=== PATIENT | female | born 1960 | race Caucasian/White ===

== ENCOUNTER 2023-12-19 16:27 | Emergency (ER) | payer MEDICARE, SELFPAY ==
[2023-12-19] VITALS (13 sets, daily range): BP systolic 106–107; BP diastolic 61–72; PULSE 69–93; RESP 14–18; TEMP 36.4; O2SAT 89–98; BMI 37.4
--- NOTE | 2023-12-19 16:44 | ED_ITS ---
HPI - General Adult General Chief complaint: Chest Pain Stated complaint: Dizzy, confused, trouble breathing Time Seen by Provider: 12/19/23 16:39 History of Present Illness HPI narrative: Pt c/o gasping for air, chest pain, and dizziness that started about an hour ago. Pt states she felt like she was going to pass out while driving to ER. Pt states she couldn't call ambulance because I was driving. Pt states she has pain in left leg for about a week and was at an appointment in [place] earlier today to get started with pain management doctor. Hx two stents placed and a pacemaker . Last stent placed two weeks ago. 63-year-old woman presenting to the emergency department having driven herself here. She began to feel short of breath and some combination of dizziness and lightheadedness beginning about an hour prior to arrival. She was feeling like she was about to pass out. She says she just started shaking like a leaf. Not so much chest pain. She has however had pain in her left leg the entirety of it for about a week and was anticipating appointment at a pain clinic earlier today and this was the reason for being out driving. Does have a history of a pacemaker and had some stomach pains prompting admission to the hospital she says 2 weeks ago and ultimately had a cardiac stent placed at that time. I asked her whether not she has felt as she feels now and she says no but with further clarification sounds as though she has actually felt like this just not quite is intensely 2 weeks ago. No fever. No cough. Related Data Home Medications Medication Instructions Recorded Confirmed alcohol swabs pad topical DAILY 12/19/23 atorvastatin 40 mg tablet 40 mg PO DAILY 12/19/23 12/19/23 blood glucose control high and low 12/19/23 12/19/23 solution (Accu-Chek Guide L1-L2 Control Solution) blood sugar diagnostic (Accu-Chek 12/19/23 12/19/23 Guide test strips) blood-glucose meter (Accu-Chek 12/19/23 12/19/23 Guide Me Glucose Meter) blood-glucose meter,continuous 12/19/23 12/19/23 (Namely G7 Consulting Intern) blood-glucose sensor (Namely G6 12/19/23 12/19/23 Sensor device) blood-glucose transmitter (Meographcom 12/19/23 12/19/23 G6 Transmitter device) dulaglutide 0.75 mg/0.5 mL 0.75 mg subcut 12/19/23 subcutaneous pen injector (Trulicity) dulaglutide 1.5 mg/0.5 mL 1.5 mg subcut 12/19/23 subcutaneous pen injector (Trulicity) dulaglutide 3 mg/0.5 mL 3 mg subcut 12/19/23 subcutaneous pen injector (Trulicity) dulaglutide 4.5 mg/0.5 mL 4.5 mg subcut 12/19/23 subcutaneous pen injector (Trulicity) insulin glargine U-300 conc 300 36 unit subcut QPM 12/19/23 12/19/23 unit/mL (1.5 mL) subcutaneous pen (Toujeo SoloStar U-300 Insulin) insulin lispro 100 unit/mL 4 - 20 unit subcut 3XD 12/19/23 12/19/23 subcutaneous pen (Humalog KwikPen (U-100) Insulin) lancets (Accu-Chek Fastclix Lancet 12/19/23 12/19/23 Dmitriy) meclizine 25 mg tablet PO 12/19/23 minocycline 100 mg capsule 100 mg PO BID 12/19/23 12/19/23 naproxen 500 mg tablet 500 mg PO BID 12/19/23 12/19/23 nitroglycerin 0.4 mg sublingual mg sublingual 12/19/23 tablet oxycodone 5 mg tablet PO 12/19/23 pantoprazole 40 mg tablet,delayed 40 mg PO DAILY 12/19/23 12/19/23 release pen needle, diabetic 32 gauge x 12/19/23 12/19/2332 (BD Federica 2nd Gen Pen Needle) prednisone 10 mg tablet 40 mg PO DAILY 12/19/23 12/19/23 Previous Rx's Medication Instructions Recorded diazepam 5 mg tablet (Valium) 2.5 - 5 mg (0.5 - 1 x 5 mg) PO BID 12/19/23 PRN intense dizziness #5 tabs meclizine 25 mg tablet 25 mg PO TID #15 tabs 12/19/23 Allergies Allergy/AdvReac Type Severity Reaction Status Date / Time Unable to Assess Allergy Verified 12/19/23 16:37 Review of Systems Status of ROS: Reports: 6 or more systems reviewed and unremarkable except as noted in History and below [facility] Social History Smoking Status: Never smoker How often do you have a drink containing alcohol: never AUDIT-C Alcohol total score: 0 Non-prescribed substance use: denies use Exam Narrative: Exam Narrative: Cranial nerves 2-12 appear to be intact. Is clearly anxious. Mildly labored in her breathing. Oxygenating normally. She is tremulous generally. Is able to move all extremities without difficulty though any palpation of the entirety of the left leg seems to cause pain. Does feel more tense in the lower leg and little more full relative to the right. There is some bruising consistent more with subcutaneous varicosities left greater than right. Abdomen is overweight and soft and she is sore in the right lower abdomen. No peritoneal signs here. Cranial nerves 2-12 to be intact. There may be some beating nystagmus to the left. She does reports some combination of dizziness and lightheadedness when she goes to sitting position or looking up and down but rotating the head to the right only feels a sense of lightheadedness and then dizziness and maybe some lightheadedness when rotating head to the left. No evidence of head trauma. Lungs appear to be clear heart in regular rate and rhythm. Somewhat distant. Returned to do head impulse testing. She is positive to the left consistent with reports of dizziness more persistent to that side. Const: Vital Signs, click to edit/add: Vital Signs - 24 hr 12/19/23 16:29 12/19/23 17:00 12/19/23 17:00 Temperature 97.5 F L Pulse Rate 80 Pulse Rate [Pulse Oximeter] 80 Respiratory Rate 18 16 Blood Pressure 107/61 Blood Pressure [Le ft Upper Arm] 106/72 Pulse Oximetry 97 95 96 Oxygen Delivery Me thod Room Air 12/19/23 17:45 12/19/23 19:23 12/19/23 19:30 Temperature Pulse Rate 74 81 82 Pulse Rate [Pulse Oximeter] Respiratory Rate 14 Blood Pressure Blood Pressure [Le ft Upper Arm] Pulse Oximetry 90 98 97 Oxygen Delivery Me thod 12/19/23 19:45 12/19/23 20:00 12/19/23 20:15 Temperature Pulse Rate 75 76 76 Pulse Rate [Pulse Oximeter] Respiratory Rate Blood Pressure Blood Pressure [Le ft Upper Arm] Pulse Oximetry 95 89 92 Oxygen Delivery Me thod 12/19/23 20:30 12/19/23 20:45 12/19/23 21:00 Temperature Pulse Rate 78 79 69 Pulse Rate [Pulse Oximeter] Respiratory Rate Blood Pressure Blood Pressure [Le ft Upper Arm] Pulse Oximetry 91 91 92 Oxygen Delivery Me thod 12/19/23 21:15 12/19/23 21:30 Temperature Pulse Rate 93 80 Pulse Rate [Pulse Oximeter] Respiratory Rate Blood Pressure Blood Pressure [Le ft Upper Arm] Pulse Oximetry 98 92 Oxygen Delivery Me thod Documenting provider has reviewed patient's vital signs: yes Course Vital Signs Vital signs: Initial Vital Signs Temperature 97.5 F L 12/19/23 16:29 Temperature Source Temporal Artery Scan 12/19/23 16:29 Pulse Rate 80 12/19/23 16:29 Respiratory Rate 18 12/19/23 16:29 Blood Pressure 106/72 12/19/23 16:29 Blood Pressure Mean 83 12/19/23 16:29 Blood Pressure Position Sitting 12/19/23 16:29 Pulse Oximetry 97 12/19/23 16:29 Oxygen Delivery Method Room Air 12/19/23 16:29 Vital Signs Temperature 97.5 F L 12/19/23 16:29 Pulse Rate 80 12/19/23 16:29 Respiratory Rate 18 12/19/23 16:29 Blood Pressure 106/72 12/19/23 16:29 Pulse Oximetry 97 12/19/23 16:29 Oxygen Delivery Method Room Air 12/19/23 16:29 Temperature 97.5 F L 12/19/23 16:29 Pulse Rate 80 12/19/23 21:30 Respiratory Rate 14 12/19/23 17:45 Blood Pressure 107/61 12/19/23 17:00 Pulse Oximetry 92 12/19/23 21:30 Oxygen Delivery Method Room Air 12/19/23 16:29 Medications Administered Medications: Discontinued Medications Generic Name Dose Route Start Last Admin Trade Name Freq PRN Reason Stop Dose Admin Diazepam 2.5 mg 12/19/23 17:04 12/19/23 17:29 Diazepam 5 Mg/Ml Inj IV 12/19/23 17:05 2.5 mg ONCE ONE Administration Sodium Chloride 500 mls @ 500 mls/hr 12/19/23 17:55 02/26/24 19:48 0.9 % Sodium Chloride 500 Ml IV 12/19/23 18:54 Infused .Q1H ONE Infusion Ondansetron HCl 4 mg 12/19/23 19:34 12/19/23 19:48 Ondansetron 2 Mg/Ml Inj IVP 12/19/23 19:35 4 mg ONCE ONE Administration Medical Decision Making MDM Narrative Medical decision making narrative: Certainly anxiety is exacerbating her symptoms here today. This may be vertigo and secondary panic attack in the setting of some underlying cardiovascular ischemic event. Appears to be in a regular rhythm at this time. Could be CVA. Certainly could be pulmonary embolus maintaining oxygenation with a DVT in the left leg. Will be monitoring on vehicle monitor technician. Checking labs. Will start off initially just with a noncontrast head CT and ultrasound imaging of the left leg. Some low-dose Valium and reassessment. Reassessment see under exam. She does report still feeling dizzy. Blood pressures are not elevated again on arrival 106/72 perhaps inconsistent with ischemic cerebrovascular event. Had received half dose Valium. The time of reassessment probably had been about 10 minutes since had received this Valium. Would like to add some fluids. Will use this cautiously. Initiated 500 mL of normal saline. I did discuss this case with Neurology on-call. They also suspect more of a peripheral etiology. Chest x-ray reviewed by me looks to be absent of infiltrate or pneumothorax. Postoperative changes noted. Noncontrast head CT reviewed by me looks to be absent of any acute abnormality. Study:?CT-Head WITHOUT-12/19/2023 5:40:41 PM Ordering Physician:LUTHER Final Report: INDICATION: LIGHT HEADED AND DIZZY. CT HEAD WITHOUT CONTRAST TECHNIQUE: Multiple axial CT images were performed through the head without intravenous contrast administration. COMPARISON: No previous studies are currently available for comparison. FINDINGS: No acute intracranial hemorrhage is identified. No extra-axial collections are evident and there is no mass effect or midline shift. There is mild diffuse age-related brain atrophy. Ventricular size and configuration are within normal limits for the patient`s age. Watson-white differentiation is within normal limits. There is patchy hypodensity in the periventricular white matter, a nonspecific finding which most likely reflects chronic small vessel ischemic change. Osseous structures are within normal limits and no fractures are seen. Included portions of the paranasal sinuses and mastoid air cells are normally aerated. IMPRESSION: 1. No acute intracranial abnormality identified. 2. Mild age-related brain atrophy and white matter hypodensity consistent with chronic small vessel ischemic change. Discussion with operations trainer reports small White's cyst at the left popliteal fossa. No DVT. Labs are reassuring. D-dimer is however elevated at 1.1. I did discuss this finding with Ms. Cornell. She has had recent instrumentation. Access for stenting apparently was obtained through the right wrist. She does not have pleuritic pain she is not hypoxic she is not short of breath. We agreed to defer further imaging at this time. Did drift 90% on room air I think while she was sleeping. While I am talking with her oximetry 98%. Much more calm and no longer trembling. Dizziness is essentially absent. Sleepy but clearly improved on repeat reassessments. No events on vehicle monitor technician. Persistently paced rhythm. Vitals have been stable. See patient discharge plan Lab Data Lab results reviewed: Yes I reviewed the patient's lab results Labs: Lab Results 12/19/23 12/19/23 Range/Units 17:25 20:55 WBC 10.19 (4.50-11.00) K/uL RBC 3.88 L (4.00-5.20) m/uL Hgb 11.0 L (12.0-16.0) gm/dL Hct 34.1 (33.0-51.0) % MCV 88 (80-100) fL MCH 28 (26-34) pg MCHC 32 (32-36) gm/dL RDW Coeff of Juan Manuel 15.8 H (11.5-15.5) % Plt Count 255 (140-440) K/uL Neut % (Auto) 76.3 H (42.0-72.0) % Lymph % (Auto) 14.0 L (20-44) % Thurston % (Auto) 6.8 (0.0-11.0) % Eos % (Auto) 2.6 (0.0-7.0) % Baso % (Auto) 0.0 (0.0-3.0) % Neut # (Auto) 7.80 H (1.7-7.0) K/uL Lymph # (Auto) 1.40 (0.90-2.90) K/uL Thurston # (Auto) 0.70 (0.00-0.90) K/UL Eos # (Auto) 0.26 (0.00-0.50) K/uL Baso # (Auto) 0.00 (0.00-0.30) K/uL Abs Immat Gran (auto) 0.03 (0.00-0.30) K/uL Imm/Tot Granulo (auto) 0.3 % D-Dimer Quant (PE/DVT) 1.09 H (0.00-0.50) ug/ml Sodium 139 (135-149) mmol/L Potassium 3.7 (3.6-5.1) mmol/L Chloride 104 (96-114) mmol/L Carbon Dioxide 24 (20-32) mmol/L Anion Gap 11 (7-15) mEq/L BUN 27 (7-30) mg/dL Creatinine 0.8 (0.5-1.5) mg/dL Estimated Creat Clear 50.47 Estimated GFR 82 ml/min Glucose 150 H (60-115) mg/dL Calcium 9.5 (8.4-10.6) mg/dL Magnesium 1.8 (1.5-2.6) mg/dL Troponin I < 0.01 L (0.01-0.04) ng/mL C-Reactive Protein 0.7 (0.5-1.0) mg/dL NT-Pro-B Natriuret Pep 112 pg/mL Urine Color Yellow (Yellow) Urine Appearance Clear (Clear) Urine pH 6.0 (5.0-8.5) Ur Specific [place] 1.020 (1.000-1.030) Urine Protein Negative (Negative) Urine Glucose (UA) Negative (Negative) Urine Ketones Negative (Negative) Urine Blood Negative (Negative) Urine Nitrite Negative (Negative) Urine Bilirubin Negative (Negative) Urine Urobilinogen 0.2 (0.2-1.0) Ur Leukocyte Esterase Trace A (Negative) Urine RBC 0-2 (0-2) Urine WBC 2-5 (0-5) Ur Squamous Epith Cells None (None-Few) Urine Bacteria None (None) POC Troponin I 0.02 (0.01-0.04) ng/ml ECG Data Attestation: I personally reviewed and interpreted this ECG as follows: (Ventricular paced rhythm, atrial sensed. Rate of 77. Do not appreciate acute ischemic changes.) Discharge Plan Discharge Clinical Impression: Peripheral vertigo involving left ear, Anxiety attack Patient Disposition: Home, Self-Care Condition: Improved Additional Instructions: I am sure you felt terrible with this dizziness. Very pleased you are feeling better. If it does not make you to tired, you can take meclizine regularly 3 times daily over the next 4 days to settle down inflammation. For more intense dizzy symptoms I have prescribed small quantity of Valium. The Valium can make you tired. Of course this plus your dizziness can be a risk for falls; be sure your walker is at hand. See handout for exercises that you can do that might help the dizziness. Focus on the exercises for the left ear. Stay well-hydrated. Be seen for noon focal weakness, intractable vomiting, chest pain or shortness of breath. Prescriptions: New meclizine 25 mg tablet 25 mg PO TID Qty: 15 0RF diazepam [Valium] 5 mg tablet 2.5 - 5 mg PO BID PRN (Reason: intense dizziness) Qty: 5 0RF No Action atorvastatin 40 mg tablet 40 mg PO DAILY prednisone 10 mg tablet 40 mg PO DAILY (DME) blood-glucose meter [Accu-Chek Guide Me Glucose Mtr] Misc MISCELLANEOUS DAILY minocycline 100 mg capsule 100 mg PO BID (DME) Accu-Chek Guide test strips Strip MISCELLANEOUS 3XD (DME) lancets [Accu-Chek Fastclix Lancet Drum] Mis MISCELLANEOUS 3XD meclizine 25 mg tablet PO pantoprazole 40 mg tablet,delayed release (DR/EC) 40 mg PO DAILY nitroglycerin 0.4 mg tablet, sublingual sublingual alcohol swabs Pads, Medicated TOPICAL DAILY naproxen 500 mg tablet 500 mg PO BID oxycodone 5 mg tablet PO insulin lispro [Humalog KwikPen Insulin] 100 unit/mL insulin pen 4 - 20 unit subcut 3XD (DME) Accu-Chek Guide L1-L2 Ctrl Vanessa Solution MISCELLANEOUS Patient Comments: USE TO ENSURE ACCURATE BLOOD GLUCOSE TESTING (DME) Dexcom G6 Sensor Device MISCELLANEOUS Q10D (DME) Dexcom G7 Consulting Intern Misc MISCELLANEOUS Patient Comments: FOR CONTINUOUS GLUCOSE SENSING (DME) Dexcom G6 Transmitter Device MISCELLANEOUS [id number] (DME) pen needle, diabetic [BD Federica 2nd Gen Pen Needle] 32 gauge x 5/32 needle MISCELLANEOUS QID Trulicity 0.75 mg/0.5 mL pen injector 0.75 mg subcut Trulicity 1.5 mg/0.5 mL pen injector 1.5 mg subcut insulin glargine U-300 conc [Toujeo SoloStar U-300 Insulin] 300 unit/mL (1.5 mL) insulin pen 36 unit subcut QPM Trulicity 4.5 mg/0.5 mL pen injector 4.5 mg subcut Trulicity 3 mg/0.5 mL pen injector 3 mg subcut Follow Up/Referrals: Amanda Orellana MD [Primary Care Provider] - Stand Alone Forms: [facility] Info Instructions
--- NOTE | 2023-12-19 17:04 | XR_ITS ---
Patient: MARILEE STEPHENS Facility:?[facility] Patient ID:?[id number] Site Patient ID:?[id number]. Site :?1960 Study:?XR-Chest 1 VIEW-12/19/2023 5:42:23 PM Ordering Physician:LUTHER Final Report: INDICATION: Dyspnea. Recent cardiac stent. Comparison: 11/09/2017. Findings/Impression: Sitting AP chest radiograph. ECG wires overlie the chest. No acute pulmonary infiltrates identified. No pleural effusions. Heart size is within normal limits. There has been interval placement of a cardiac pacemaker, with the generator over the right chest. No acute osseous findings are noted. Dictated by Herber Remy MD @ 12/19/2023 6:27:58 PM Dictated by: Herber Remy MD @ 12/19/2023 18:28:28 Signed by:?Herber Remy MD @12/19/2023 6:28:28 PM (Electronic Signature)
--- NOTE | 2023-12-19 17:04 | CT_ITS ---
Patient: MARILEE STEPHENS Facility:?[facility] Patient ID:?[id number] Site Patient ID:?[id number]. Site :?1960 Study:?CT-Head WITHOUT-12/19/2023 5:40:41 PM Ordering Physician:LUTHER Final Report: INDICATION: LIGHT HEADED AND DIZZY. CT HEAD WITHOUT CONTRAST TECHNIQUE: Multiple axial CT images were performed through the head without intravenous contrast administration. COMPARISON: No previous studies are currently available for comparison. FINDINGS: No acute intracranial hemorrhage is identified. No extra-axial collections are evident and there is no mass effect or midline shift. There is mild diffuse age-related brain atrophy. Ventricular size and configuration are within normal limits for the patient`s age. Watson-white differentiation is within normal limits. There is patchy hypodensity in the periventricular white matter, a nonspecific finding which most likely reflects chronic small vessel ischemic change. Osseous structures are within normal limits and no fractures are seen. Included portions of the paranasal sinuses and mastoid air cells are normally aerated. IMPRESSION: 1. No acute intracranial abnormality identified. 2. Mild age-related brain atrophy and white matter hypodensity consistent with chronic small vessel ischemic change. MARI RAMOS MD [employer] Please note that all CT scans at this facility use dose modulation, iterative reconstruction, and/or weight-based dosing when appropriate to reduce radiation dose to as low as reasonably achievable. Dictated by: Herber Ramos MD @ 12/19/2023 18:31:11 Signed by:?Herber Ramos MD @12/19/2023 6:31:11 PM (Electronic Signature)
--- NOTE | 2023-12-19 17:19 | US_ITS ---
Patient: MARILEE STEPHENS Facility:?[facility] Patient ID:?[id number] Site Patient ID:?[id number]. Site :?1960 Study:?US-Extremity Left DVT-12/19/2023 6:34:17 PM Ordering Physician:?ED Final Report: Indication: Left leg pain and swelling Technique: Venous duplex ultrasound of the left lower extremity, deep vein thrombosis protocol, with grayscale, color, and spectral Doppler Comparison: None Findings: There is no deep vein thrombosis in the left common femoral, deep femoral, superficial femoral, popliteal peroneal, posterior tibial, or contralateral right common femoral veins. There is no superficial venous thrombosis in the greater saphenous vein. Small popliteal cyst measuring 1.3 x 3.1 x 1.0 centimeters. Impression: No deep vein thrombosis in the left lower extremity. Dictated by Burke Arthur MD @ 12/19/2023 8:29:16 PM Signed by:?Burke Arthur MD @12/19/2023 8:29:16 PM (Electronic Signature)
[2023-12-19] MEDS: diazePAM 5 MG/ML inj 2.5 MG IV (17:29)
[2023-12-19 17:38] LABS: Eosinophils Absolute Auto 0.26 K/uL (0.00-0.50); Eosinophils Percent Auto 2.6 % (0.0-7.0); Hematocrit 34.1 % (33.0-51.0); Immature Granulocytes Abs Auto 0.03 K/uL (0.00-0.30); Immature Granulocytes Pct Auto 0.3 %; Mean Corpuscular HGB Conc 32 gm/dL (32-36); Mean Corpuscular Hemoglobin 28 pg (26-34); Mean Corpuscular Volume 88 fL (80-100); Monocytes Percent Auto 6.8 % (0.0-11.0); Neutrophils Percent Auto 76.3 % (42.0-72.0); Platelet Count* 255 K/uL (140-440); RDW Coefficient of Variation % 15.8 % (11.5-15.5); Red Blood Count 3.88 m/uL (4.00-5.20); White Blood Count* 10.19 K/uL (4.50-11.00)
[2023-12-19 17:39] LABS: Slide Review Reflex No
[2023-12-19 17:53] LABS: Chloride* 104 mmol/L (96-114); Potassium* 3.7 mmol/L (3.6-5.1); Sodium* 139 mmol/L (135-149)
[2023-12-19 17:56] LABS: Creatinine* 0.8 mg/dL (0.5-1.5); Est. Creatinine Clearance* 50.47; Estimated Glomerular Filt Rate 82 ml/min
[2023-12-19 17:57] LABS: Anion Gap 11 mEq/L (7-15); Blood Urea Nitrogen* 27 mg/dL (7-30); Calcium* 9.5 mg/dL (8.4-10.6); Carbon Dioxide* 24 mmol/L (20-32); D Dimer Quantitative* 1.09 ug/ml (0.00-0.50); Glucose* 150 mg/dL (60-115); Magnesium* 1.8 mg/dL (1.5-2.6)
[2023-12-19 18:00] LABS: C Reactive Protein* 0.7 mg/dL (0.5-1.0)
[2023-12-19] MEDS: 0.9 % SODIUM CHLORIDE 500 ML 500 ML IV (18:02)
[2023-12-19 18:11] LABS: NT Pro B Type NatriureticPept* 112 pg/mL; Troponin I* < 0.01 ng/mL (0.01-0.04)
[2023-12-19 18:30] LABS: Troponin, Point-of-Care* 0.02 ng/ml (0.01-0.04)
[2023-12-19] MEDS: ONDANSETRON 2 MG/ML inj 4 MG IVP (19:48)
[2023-12-19 21:02] LABS: Appearance Urine Clear (Clear); Bilirubin Urine Negative (Negative); Blood Urine Negative (Negative); Color Urine Yellow (Yellow); Glucose Urine Negative (Negative); Ketones Urine Negative (Negative); Leukocyte Esterase Urine Trace (Negative); Nitrite Urine Negative (Negative); Protein Urine Negative (Negative); Urobilinogen Urine 0.2 (0.2-1.0)
[2023-12-19 21:25] LABS: RBC Urine 0-2 (0-2)
== END 2023-12-19 21:46 | disposition home or self-care (01) ==
PROVIDERS: Emergency Provider Family Medicine; PCP Family Medicine
DX: H81.12 Benign paroxysmal vertigo, left ear (principal); F41.9 Anxiety disorder, unspecified
CPT/HCPCS: 36415; 70450; 71045; 80048; 81001; 83735; 83880; 84484; 85025; 85379; 86140; 87086; 93005; 93971; 94761; 96374; 96375; 99284; 99285; J2405; J3360; J7030

== ENCOUNTER 2024-03-05 20:43 | Observation (INO) | payer MEDICARE, SELFPAY ==
[2024-03-05 21:15] VITALS: BP 124/71; PULSE 65; RESP 18; TEMP 36.5; O2SAT 98; BMI 44.4
[2024-03-06] VITALS (8 sets, daily range): BP systolic 112–133; BP diastolic 53–75; PULSE 67–95; RESP 16–18; TEMP 36.2–37; O2SAT 93–100; BMI 39.8
--- NOTE | 2024-03-06 00:11 | ED.LOWEXIN ---
HPI - Extremity Injury (Lower) General Time Seen by Provider: 00:30 Date Seen: 03/06/24 Chief Complaint: Unspecified Complaint, Adult Stated Complaint: Hasn't taken meds for diabetes Time Seen by Provider: 03/06/24 00:11 Source: patient, RN notes reviewed and old records reviewed Mode of arrival: ambulatory Limitations: no limitations History of Present Illness HPI Narrative: Argentina is a 63-year-old female who self reports history of diabetes, questionable bony infection, lower extremity edema who comes to the emergency room via private vehicle for evaluation of not taking her pills. Patient initially told nursing staff that she was so upset about a recent eviction from her home that she did not take her pills. In discussion with patient she has multiple complaints. History is very challenging as she has not entirely forthcoming with complete answers and jumps from topic to topic. First she tells me that she has been sleeping in her car the past few days and she was evicted from her apartment. Initially does not tell me where her apartment is even though I asked numerous times but I do learned that it is in [place]. She states at 1 point that she return from [place] this morning only to find blue tape on the door of her home. She states that she was evicted. She then drove to the area because for years ago she had been living in [place] and was seeing Amanda Orellana at the [facility] at that time. I asked her what her planned for tonight was in terms of staying with friends or family and she laughed stating that she supposed that she would stay another night in her car. Patient states that she just returned from [place] where she had been hospitalized with chest pain a sore leg and blood clots. She notes that she had been there a week but then went to a rehab facility. However upon further discussion she notes a 2nd trip to [place] in which she had to be hospitalized for similar complaints. She has since been on Eliquis since her 1st visit to [place] and stated that recently she had another ultrasound that showed persistent clots. She then tells me that she drove for many hours from [place] and arrived this morning. She is very concerned because she states that her lower legs are very swollen and this is new and that just waiting in the waiting room she watched her legs swell special on the left. She did take her Eliquis tonight but did not take it this morning. Nursing staff assisted patient in taking her nighttime medications upon her arrival. Patient states she continues to have occasional chest pain. Patient initially very concerned regarding her lower extremity edema. Complains of left leg pain. States that this just happened. I do note that in November she had a visit for similar complaints here in [place] and during the telling of her history similar symptoms upon her presentations to both hospitals in [place]. Patient is showing me her medications and stating that she is worried that she is may be doubled up on some. She has medications from [facility]. She notes that she has taken her oral medications this evening but not her insulin doses. She has a large bottle full of minocycline. She states that she has a bone infection but the bottle is 3/4 full and the date on the bottle as August 2023. She states that she keeps refilling the medication but then puts it in the same bottle. This prescription is from [facility]. Interspersed with history patient goes back to being kicked out of her apartment. She states that she lived there for 4 years and only missed 1 payment. I do ask her about case workers and she says no but she has worked with a lot of them. She tells me that she had been in [place] looking and checking out schools as she wants to return to actually schools. She also tells me that she will be contacting her psychologist tomorrow morning as she is very upset about being kicked out of her apartment. She also notes that she is very sad in February is a very tough month for her as she lost multiple family members and had to put her beloved pet down a few years ago. Patient denies counselor or mental health provider. Related Data Home Medications Medication Instructions Recorded Confirmed alcohol swabs pad topical DAILY 12/19/23 atorvastatin 40 mg tablet 40 mg PO DAILY 12/19/23 12/19/23 blood glucose control high and low 12/19/23 12/19/23 solution (Accu-Chek Guide L1-L2 Control Solution) blood sugar diagnostic (Accu-Chek 12/19/23 12/19/23 Guide test strips) blood-glucose meter (Accu-Chek 12/19/23 12/19/23 Guide Me Glucose Meter) blood-glucose meter,continuous 12/19/23 12/19/23 (Dexcom G7 Chief Business Development Officer) blood-glucose sensor (Dexcom G6 12/19/23 12/19/23 Sensor device) blood-glucose transmitter (Dexcom 12/19/23 12/19/23 G6 Transmitter device) dulaglutide 0.75 mg/0.5 mL 0.75 mg subcut 12/19/23 subcutaneous pen injector (Trulicity) dulaglutide 1.5 mg/0.5 mL 1.5 mg subcut 12/19/23 subcutaneous pen injector (Trulicity) dulaglutide 3 mg/0.5 mL 3 mg subcut 12/19/23 subcutaneous pen injector (Trulicity) dulaglutide 4.5 mg/0.5 mL 4.5 mg subcut 12/19/23 subcutaneous pen injector (Trulicity) insulin glargine U-300 conc 300 36 unit subcut QPM 12/19/23 12/19/23 unit/mL (1.5 mL) subcutaneous pen (Toujeo SoloStar U-300 Insulin) insulin lispro 100 unit/mL 4 - 20 unit subcut 3XD 12/19/23 12/19/23 subcutaneous pen (Humalog KwikPen (U-100) Insulin) lancets (Accu-Chek Fastclix Lancet 12/19/23 12/19/23 Dmitriy) meclizine 25 mg tablet PO 12/19/23 minocycline 100 mg capsule 100 mg PO BID 12/19/23 12/19/23 naproxen 500 mg tablet 500 mg PO BID 12/19/23 12/19/23 nitroglycerin 0.4 mg sublingual mg sublingual 12/19/23 tablet oxycodone 5 mg tablet PO 12/19/23 pantoprazole 40 mg tablet,delayed 40 mg PO DAILY 12/19/23 12/19/23 release pen needle, diabetic 32 gauge x 12/19/23 12/19/23 (BD Federica 2nd Gen Pen Needle) prednisone 10 mg tablet 40 mg PO DAILY 12/19/23 12/19/23 Previous Rx's Medication Instructions Recorded diazepam 5 mg tablet (Valium) 2.5 - 5 mg (0.5 - 1 x 5 mg) PO BID 12/19/23 PRN intense dizziness #5 tabs meclizine 25 mg tablet 25 mg PO TID #15 tabs 12/19/23 Allergies Allergy/AdvReac Type Severity Reaction Status Date / Time Unable to Assess Allergy Verified 12/19/23 16:37 Review of Systems Status of ROS: Reports: 10 or more systems reviewed and unremarkable except as noted in History and below Narrative: Denies tobacco use, alcohol use and drug use. [facility] Social History Smoking Status: Never smoker How often do you have a drink containing alcohol: never AUDIT-C Alcohol total score: 0 Non-prescribed substance use: denies use Exam Narrative: Exam Narrative: Past medical history: Pacemaker-noted on EKG and not volunteered by patient. 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 She is very frustrated. She is very talkative of her preferred topics. I am having a hard time putting all the information she is giving me together as there is some conflicts of the story. Head is atraumatic normocephalic. Moist mucous membranes. Moderate eye contact. EOM is full. Heart with regular rate and rhythm and lungs are clear bilaterally. Abdomen is soft. Lower extremities with 2+ edema. Nonpitting. Moving all extremities and able to ambulate. There is some ecchymosis noted on the anterior lower extremities. No evidence of hematoma. Const: Vital Signs, click to edit/add: Vital Signs - 24 hr 03/05/24 21:15 Temperature 97.7 F Pulse Rate [Pulse Oximeter] 65 Respiratory Rate 18 Blood Pressure [Ri ght Upper Arm] 124/71 Pulse Oximetry 98 Oxygen Delivery Me thod Room Air Documenting provider has reviewed patient's vital signs: yes Course Course ED Course: At this time patient presents with multiple complaints. I think patient is presenting as she states she is homeless. Klaus Elaine had multiple complaints and thus we will check CBC, comprehensive, troponin, EKG ETOH as well as drug tox. She is very concerned about her lower extremity edema which I think is actually because her of prolonged driving and this is a dependent edema. She does not appear to have any respiratory distress and her O2 sats are reassuring. No evidence of tachycardia or illness at this time. No evidence of a radiculopathy. However, her mental state is somewhat worrisome for me. I wonder if she is sleep deprived and thus perhaps slightly manic or if this is her baseline. Will attempt to get records from [place]. At this time she is agreeable to labs and overnight admission. I do think we need director social consult as well as pharmacy consult to assist us in the care of this patient. I am thinking that she needs more support. I suspect that there is a protective services case worker or past history of County involvement with this patient. Vital Signs Vital signs: Initial Vital Signs Temperature 97.7 F 03/05/24 21:15 Temperature Source Temporal Artery Scan 03/05/24 21:15 Pulse Rate 65 03/05/24 21:15 Respiratory Rate 18 03/05/24 21:15 Blood Pressure 124/71 03/05/24 21:15 Blood Pressure Mean 88 03/05/24 21:15 Blood Pressure Position Sitting 03/05/24 21:15 Pulse Oximetry 98 03/05/24 21:15 Oxygen Delivery Method Room Air 03/05/24 21:15 Vital Signs Temperature 97.7 F 03/05/24 21:15 Pulse Rate 65 03/05/24 21:15 Respiratory Rate 18 03/05/24 21:15 Blood Pressure 124/71 03/05/24 21:15 Pulse Oximetry 98 03/05/24 21:15 Oxygen Delivery Method Room Air 03/05/24 21:15 Temperature 97.7 F 03/05/24 21:15 Pulse Rate 65 03/05/24 21:15 Respiratory Rate 18 03/05/24 21:15 Blood Pressure 124/71 03/05/24 21:15 Pulse Oximetry 98 03/05/24 21:15 Oxygen Delivery Method Room Air 03/05/24 21:15 MDM - Extremity Injury (Lower) MDM Narrative Medical decision making narrative: 1. Lower extremity edema with history of DVT-likely dependent from the long car ride. Patient states that she has been taking her Eliquis. She did receive a dose tonight but stated that she had not received 1 the morning of 03/05. Ultrasound scheduled for tomorrow morning to assess clot burden. Measurement of both legs is within 1/8 of an inch. No evidence of pitting edema. ProBNP is reassuring. 2. Left leg pain -able to ambulate. No evidence of radiculopathy. 3. Chest pain-patient has paced rhythm. Troponin is negative. 4. Diabetes-patient does eat and take her diabetic medications this evening. 5. Lack of housing-patient notes that she was evicted from her apartment this morning when she return from [place]. She states that she had only missed 1 payment. Notes that she will be calling her psychologist tomorrow. Rather evasiveness in regards to having a protective services case worker. Would ask for director social to assist us with this patient. 6. Disposition-admission to [facility] for for pharmacological and director social consult. Patient has multiple medications from various hospitals. Also requesting records at this time. I do suspect there is an element of malingering after discussion with patient. I do think there is likely a history of mental health issues as well. Patient admitted after [facility] from [facility]. Addendum: Records were received from [id number] and patient was hospitalized in [place]. Similar visit to leyla's visit with suspicions of malingering as well. However, I do not think patient is in a position to take care for medications and herself. I am wondering about an element of sleep deprivation causing some elsie as well. Medical Records Attestation: I reviewed the patient's medical records. Lab Data Attestation: I reviewed the patient's lab results. Labs: Lab Results 03/06/24 03/06/24 Range/Units 01:21 01:50 WBC 8.38 (4.50-11.00) K/uL RBC 3.80 L (4.00-5.20) m/uL Hgb 10.6 L (12.0-16.0) gm/dL Hct 33.7 (33.0-51.0) % MCV 89 (80-100) fL MCH 28 (26-34) pg MCHC 32 (32-36) gm/dL RDW Coeff of Juan Manuel 15.9 H (11.5-15.5) % Plt Count 217 (140-440) K/uL Neut % (Auto) 70.0 (42.0-72.0) % Lymph % (Auto) 19.6 L (20-44) % [place] % (Auto) 7.0 (0.0-11.0) % Eos % (Auto) 3.0 (0.0-7.0) % Baso % (Auto) 0.0 (0.0-3.0) % Neut # (Auto) 5.87 (1.7-7.0) K/uL Lymph # (Auto) 1.60 (0.90-2.90) K/uL [place]on # (Auto) 0.60 (0.00-0.90) K/UL Eos # (Auto) 0.25 (0.00-0.50) K/uL Baso # (Auto) 0.00 (0.00-0.30) K/uL Abs Immat Gran (auto) 0.03 (0.00-0.30) K/uL Imm/Tot Granulo (auto) 0.4 % Sodium 140 (135-149) mmol/L Potassium 3.3 L (3.6-5.1) mmol/L Chloride 108 (96-114) mmol/L Carbon Dioxide 25 (20-32) mmol/L Anion Gap 7 (7-15) mEq/L BUN 17 (7-30) mg/dL Creatinine 0.8 (0.5-1.5) mg/dL Estimated Creat Clear 52.51 Estimated GFR 82 ml/min Glucose 141 H (60-115) mg/dL Calcium 8.9 (8.4-10.6) mg/dL Total Bilirubin 0.6 (0.1-1.5) mg/dL AST 21 (12-35) U/L ALT 13 (4-35) U/L Alkaline Phosphatase 106 (40-150) U/L C-Reactive Protein 1.2 H (0.5-1.0) mg/dL NT-Pro-B Natriuret Pep 206 pg/mL Total Protein 7.0 (6.0-8.3) g/dL Albumin 3.8 (3.3-5.0) g/dL Urine Color Yellow (Yellow) Urine Appearance Clear (Clear) Urine pH 5.5 (5.0-8.5) Ur Specific Lynn <= 1.005 (1.000-1.030) Urine Protein Negative (Negative) Urine Glucose (UA) Negative (Negative) Urine Ketones Negative (Negative) Urine Blood Negative (Negative) Urine Nitrite Negative (Negative) Urine Bilirubin Negative (Negative) Urine Urobilinogen 0.2 (0.2-1.0) Ur Leukocyte Esterase Trace A (Negative) Urine RBC 0-2 (0-2) Urine WBC 0-2 (0-5) Ur Squamous Epith Cells Few (None-Few) Urine Bacteria None (None) Urine Opiates Screen Negative (Negative) Ur Oxycodone Screen Negative (Negative) Urine Methadone Screen Negative (Negative) Ur Barbiturates Screen Negative (Negative) U Tricyclic Antidepress Negative (Negative) Ur Phencyclidine Scrn Negative (Negative) Ur Amphetamines Screen Negative (Negative) U Methamphetamines Scrn Negative (Negative) U Benzodiazepines Scrn Negative (Negative) Urine Cocaine Screen Negative (Negative) U Marijuana (THC) Screen Negative (Negative) Ur Drug Screen Comment See Note Ethyl Alcohol < 0.01 L (0.01-0.03) % POC Troponin I 0.00 L (0.01-0.04) ng/ml ECG Data Attestation: I personally reviewed and interpreted this ECG as follows: ECG interpretation date: 03/06/24 Interpretation: Paced rhythm at a rate of 60. Discharge Plan Discharge Clinical Impression: Lower extremity edema, Anxiety Diabetes Qualifiers: Diabetes mellitus type: type 2 Diabetes mellitus terminal make up operator insulin use: unspecified mcfp insulin use status Diabetes mellitus complication status: without complication Qualified Code(s): E11.9 - Type 2 diabetes mellitus without complications Chest pain Qualifiers: Chest pain type: unspecified Qualified Code(s): R07.9 - Chest pain, unspecified Patient Disposition: Admitted As Observation Condition: Improved
[2024-03-06 02:00] LABS: Eosinophils Absolute Auto 0.25 K/uL (0.00-0.50); Hematocrit 33.7 % (33.0-51.0); Hemoglobin* 10.6 gm/dL (12.0-16.0); Immature Granulocytes Abs Auto 0.03 K/uL (0.00-0.30); Immature Granulocytes Pct Auto 0.4 %; Lymphocytes Percent Auto 19.6 % (20-44); Mean Corpuscular HGB Conc 32 gm/dL (32-36); Mean Corpuscular Hemoglobin 28 pg (26-34); Mean Corpuscular Volume 89 fL (80-100); Neutrophils Absolute Auto 5.87 K/uL (1.7-7.0); Platelet Count* 217 K/uL (140-440); RDW Coefficient of Variation % 15.9 % (11.5-15.5); White Blood Count* 8.38 K/uL (4.50-11.00)
[2024-03-06 02:03] LABS: Appearance Urine Clear (Clear); Bilirubin Urine Negative (Negative); Blood Urine Negative (Negative); Color Urine Yellow (Yellow); Glucose Urine Negative (Negative); Ketones Urine Negative (Negative); Leukocyte Esterase Urine Trace (Negative); Nitrite Urine Negative (Negative); Protein Urine Negative (Negative); Slide Review Reflex No; Specific Gravity Urine <= 1.005 (1.000-1.030); Urobilinogen Urine 0.2 (0.2-1.0); pH Urine 5.5 (5.0-8.5)
[2024-03-06 02:09] LABS: Amphetamine Screen Urine Negative (Negative); Barbiturate Screen Urine Negative (Negative); Benzodiazepines Screen Urine Negative (Negative); Cannabinoid Screen Urine Negative (Negative); Cocaine Screen Urine Negative (Negative); Methadone Screen Urine Negative (Negative); Methamphetamines Screen Urine Negative (Negative); Opiate Screen Urine Negative (Negative); Oxycodone Screen Urine Negative (Negative); Phencyclidine Screen Urine Negative (Negative); Tricyclic Antidepressant Urine Negative (Negative)
[2024-03-06 02:23] LABS: Albumin* 3.8 g/dL (3.3-5.0); Chloride* 108 mmol/L (96-114)
[2024-03-06 02:24] LABS: Potassium* 3.3 mmol/L (3.6-5.1); Sodium* 140 mmol/L (135-149)
[2024-03-06 02:26] LABS: Creatinine* 0.8 mg/dL (0.5-1.5); Est. Creatinine Clearance* 52.51; Estimated Glomerular Filt Rate 82 ml/min
[2024-03-06 02:27] LABS: Alanine Aminotransferase* 13 U/L (4-35); Alkaline Phosphatase* 106 U/L (40-150); Anion Gap 7 mEq/L (7-15); Aspartate Amino Transferase* 21 U/L (12-35); Bilirubin Total* 0.6 mg/dL (0.1-1.5); Blood Urea Nitrogen* 17 mg/dL (7-30); Calcium* 8.9 mg/dL (8.4-10.6); Carbon Dioxide* 25 mmol/L (20-32); Glucose* 141 mg/dL (60-115)
[2024-03-06 02:29] LABS: C Reactive Protein* 1.2 mg/dL (0.5-1.0)
[2024-03-06 02:38] LABS: RBC Urine 0-2 (0-2); Squamous Epithelial Cell Urine Few (None-Few); WBC Urine 0-2 (0-5)
[2024-03-06 02:39] LABS: Ethanol* < 0.01 % (0.01-0.03); NT Pro B Type NatriureticPept* 206 pg/mL
--- NOTE | 2024-03-06 04:48 | PC.NURSE ---
Pt admitted to floor @ 0315. Rates 10/10 in lower left leg. Says this is a chronic condition. +2 edema Bilat LEs. States is has gotten worse today after long drive from [place]. States she was evicted from apartment 1 day ago. Has no place to go. Seeking a warm place stay. Answers to question are all over the board and inconsistent with previous statements. Bag of Medications given to Pharmacy. No IV present upon admission.
--- NOTE | 2024-03-06 05:00 | W.PM.TELEH&P ---
Telehealth- H&P: HPI History of Present Illness Date Seen: 03/06/24 Chief complaint: Hasn't taken meds for diabetes Narrative: Argentina Cornell is seen as an Interactive Telehealth visit. Argentina Cornell is a 63 year old male who is Seen in her hospital room at [facility]. She has been admitted through the emergency room. She is seen with the assistance of nursing staff. She is a very markedly difficult historian. When I asked her why she is in the hospital she tells me it started a couple months ago when she went to [place] to take a look at a college. She states she had an appointment down there for career day. She stated that she ended up in the hospital because of a DVT in her leg and then ended up having go a stent in rehab. She states when she got out of there she was able to ambulate around the college and her walker and was able to do that. Very difficult to get any history. When I asked her why she was in the hospital today she tells me when she got back from [place] yesterday there was blue tape on her door and when she went in there was an envelope on her counter that states she was evicted. She states she had never missed a payment and had been living there for 4 years and was going to contact a digital media planner. When I asked her why she was at [facility] she states that she does not like her health care at [facility] and always has been through [facility]. She is really unable to tell me why she came specifically here this evening. When pushed more she states she had pain in her left leg. Otherwise she is really nonspecific. She tells me she is otherwise fairly healthy other than diabetes. Really unable to get any other significant history. In discussion with the emergency room physician it appears that patient is on Eliquis for recent DVT. Patient does seem to have disorganized thoughts. She was not felt to be safe to be discharged on her own. Patient apparently takes insulin but she is unable to tell me how much or what kinds. She tells me she has had knee surgery in the past. She denies any other medical problems. she does not have any other immediate concerns. Review of Systems Narrative: A complete review of systems was performed positive pertinent and negatives in the history of present illness. [facility] Social History What is your current living situation?: I presently do not have a place to live Problems where you live: other Problems where you live details: Pt evicted from Apartment 1 day ago In the past 12 months, utilities in danger of being shut off: no In past 12 months, lack of transportation kept you from medical appts, meetings, work, or getting things needed for daily living: no In the past 12 mos, have been you worried that your food would run out before you had money to buy more?: declined to answer In the past 12 mos, the food you bought just didn't last and you didn't have money to buy more?: declined to answer Highest level of school completed/degree received: Associate degree: occupational, technical, vocational program Smoking Status: Never smoker Second hand tobacco smoke exposure: No How often do you have a drink containing alcohol: never AUDIT-C Alcohol total score: 0 Non-prescribed substance use: denies use Caffeine: Yes (1 cup Coffee per day) How often does anyone, including family, friends and others, physically hurt you: never How often does anyone, including family, friends and others, insult or talk down to you: never How often does anyone, including family, friends and others, threaten you with harm: never How often does anyone, including family, friends and others, scream or curse at you: never service: No Meds Home Medications and Allergies Home Medications Medication Instructions Recorded Confirmed Type alcohol swabs pad topical DAILY 12/19/23 History atorvastatin 40 mg tablet 40 mg PO DAILY 12/19/23 12/19/23 History blood glucose control high and low 12/19/23 12/19/23 History solution (Accu-Chek Guide L1-L2 Control Solution) blood sugar diagnostic (Accu-Chek 12/19/23 12/19/23 History Guide test strips) blood-glucose meter (Accu-Chek 12/19/23 12/19/23 History Guide Me Glucose Meter) blood-glucose meter,continuous 12/19/23 12/19/23 History (Selerity G7 Certification Officer) blood-glucose sensor (Dexcom G6 12/19/23 12/19/23 History Sensor device) blood-glucose transmitter (Dexcom 12/19/23 12/19/23 History G6 Transmitter device) dulaglutide 0.75 mg/0.5 mL 0.75 mg subcut 12/19/23 History subcutaneous pen injector (Trulicity) dulaglutide 1.5 mg/0.5 mL 1.5 mg subcut 12/19/23 History subcutaneous pen injector (Trulicity) dulaglutide 3 mg/0.5 mL 3 mg subcut 12/19/23 History subcutaneous pen injector (Trulicity) dulaglutide 4.5 mg/0.5 mL 4.5 mg subcut 12/19/23 History subcutaneous pen injector (Trulicity) insulin glargine U-300 conc 300 36 unit subcut QPM 12/19/23 12/19/23 History unit/mL (1.5 mL) subcutaneous pen (Toujeo SoloStar U-300 Insulin) insulin lispro 100 unit/mL 4 - 20 unit subcut 3XD 12/19/23 12/19/23 History subcutaneous pen (Humalog KwikPen (U-100) Insulin) lancets (Accu-Chek Fastclix Lancet 12/19/23 12/19/23 History Drum) meclizine 25 mg tablet PO 12/19/23 History minocycline 100 mg capsule 100 mg PO BID 12/19/23 12/19/23 History naproxen 500 mg tablet 500 mg PO BID 12/19/23 12/19/23 History nitroglycerin 0.4 mg sublingual mg sublingual 12/19/23 History tablet oxycodone 5 mg tablet PO 12/19/23 History pantoprazole 40 mg tablet,delayed 40 mg PO DAILY 12/19/23 12/19/23 History release pen needle, diabetic 32 gauge x 12/19/23 12/19/23 History 5/32 (BD Federica 2nd Gen Pen Needle) prednisone 10 mg tablet 40 mg PO DAILY 12/19/23 12/19/23 History Allergies Allergy/AdvReac Type Severity Reaction Status Date / Time Unable to Assess Allergy Verified 12/19/23 16:37 Exam Narrative Exam Narrative: Physical Exam GENERAL: ?vital signs reviewed, well developed and nourished, in no distress HEENT: pupils are equal round and reactive to light, extraocular movements are grossly within normal limits and oral mucosa is moist. NECK: Supple without lymphadenopathy or thyromegaly according to nursing staff examination observation HEART: Regular rate and rhythm without any rubs, murmurs, or gallops. LUNGS: Clear to auscultation bilaterally with good air movement throughout ABDOMEN: Observation from nurse assisted exam, abdomen appears soft, Patient states her abdomen is tender to palpation but she did not mention any abdominal pain deviously., and nondistended with Positive bowel sounds noted. EXTREMITIES: Strength and sensation is observed to be grossly within normal limits in the upper and lower extremities.? No focal strength deficit is observed. SKIN:? Observed warm and dry with color normal Const Vital Signs, click to edit/add: Vital Signs - 24 hr 03/05/24 21:15 03/06/24 03:50 03/06/24 03:53 Temperature 97.7 F 97.6 F 97.6 F Pulse Rate [Left Radial] 72 72 Pulse Rate [Pulse Oximeter] 65 Respiratory Rate 18 16 16 Blood Pressure [Right Arm] 133/62 133/62 Blood Pressure [Right Upper Arm] 124/71 Pulse Oximetry 98 100 100 Oxygen Delivery Method Room Air Room Air Room Air 03/06/24 04:17 Temperature Pulse Rate [Left Radial] Pulse Rate [Pulse Oximeter] Respiratory Rate Blood Pressure [Right Arm] Blood Pressure [Right Upper Arm] Pulse Oximetry 100 Oxygen Delivery Method Room Air Hospitalist - H&P: Result Labs Labs: Short CBC 03/06/24 Range/Units 01:50 WBC 8.38 (4.50-11.00) K/uL Hgb 10.6 L (12.0-16.0) gm/dL Hct 33.7 (33.0-51.0) % Plt Count 217 (140-440) K/uL BMP 03/06/24 01:50 Sodium 140 Potassium 3.3 L Chloride 108 Carbon Dioxide 25 BUN 17 Creatinine 0.8 Glucose 141 H Calcium 8.9 Liver Function 03/06/24 Range/Units 01:50 Total Bilirubin 0.6 (0.1-1.5) mg/dL AST 21 (12-35) U/L ALT 13 (4-35) U/L Alkaline Phosphatase 106 (40-150) U/L Albumin 3.8 (3.3-5.0) g/dL Urine 03/06/24 Range/Units 01:50 Urine Color Yellow (Yellow) Urine Appearance Clear (Clear) Urine pH 5.5 (5.0-8.5) Ur Specific [place] <= 1.005 (1.000-1.030) Urine Protein Negative (Negative) Urine Glucose (UA) Negative (Negative) Assessment and Plan Assessment and plan (1) Lower extremity edema: Status: Acute (2) Diabetes: Status: Acute (3) Anxiety: Status: Acute (4) Homelessness: Status: Acute (5) Hypokalemia: Status: Acute Plan lower extremity edema?patient with a history of DVT she states on the left. It does sound like she is on Eliquis. She tells me she has been on it for 3 weeks and recently went from taking 2 to capsules twice a day to taking 1 twice a day. She tells me she did miss her medications. She tells me it just slipped her mind. Patient does have edema. May be dependent if she truly drove across the country for the last 16 hours but is not entirely clear to me. Nevertheless ultrasound has been ordered. Will continue her on Eliquis. Diabetes?patient is on insulin but it is unclear to me how much how often she takes it she is really unable to tell me. We will need pharmacy to help look through her medications and attempt to reconcile these so we can reorder them. At the moment I do not think her diabetes is causing any acute issues. Probable underlying anxiety possible underlying mental health disorder. Patient is a very wandering difficult historian. It is difficult to tease out if she has any significant ongoing medical issues that she does not seem to have any complaints to me currently. She does seem to have some similarities to what she told the emergency room physician but other areas are completely different. Homelessness?patient recently evicted. Will have social work get involved. Patient may have difficulty maintaining her health on her own. DVT- prophalaxis- not needed fully anticoagulated Code status- full code discussed with patient Telehealth: Statement Statement Telehealth Visit: Today's History and Physical is provided via interactive telehealth by Austin Acevedo DO.? Patient is located at [facility].? Provider is located at [facility].? Nursing staff assisted with the patient's exam. The visit being done today meets criteria for a telehealth visit and the patient or patient?s parent/guardian is aware the visit is a telehealth visit. Camera Start Time: 03:30 Camera End Time: 03:45
[2024-03-06] MEDS: APIXABAN 5 MG TABLET PO ×2 (08:12→20:33)
[2024-03-06] MEDS: POTASSIUM CHLORIDE 10 MEQ CAPSULE ER 20 MEQ PO (08:12)
--- NOTE | 2024-03-06 09:32 | NUTR.NU ---
RDN with diet education related to diabetic diet. Patient has a history of diabetes. Current diet Diabetic 2000 kcal. No meal intakes yet to assess. No weight history to assess. RDN visited with patient whom reports her weight has been stable recently. She has followed a diabetic diet in the past. She had no questions or concerns at this time. She declined diet education related to diabetes, however she did accept educational materials. Encouraged patient to let staff know is she has any questions or concerns. No nutrition interventions at this time. RDN to monitor.
--- NOTE | 2024-03-06 10:15 | US_ITS ---
Patient: AMRILEE STEPHENS Facility:?[facility] Patient ID:?[id number] Site Patient ID:?[id number]. Site :?[id number] Study:?US-Extremity Bilateral LEV BILATERAL-03/06/2024 10:45:10 AM Ordering Physician:?SHAJI HOOVER M.D. Final Report: INDICATION: Edema, pain, history of DVT COMPARISON: Left lower extremity DVT ultrasound 12/19/2023 TECHNIQUE: Grayscale, color Doppler, and duplex Doppler of the bilateral lower extremity deep and superficial venous systems. FINDINGS: Laterality: Bilateral Examined veins: common femoral, femoral, deep femoral, popliteal, peroneal, posterior tibial greater saphenous Incompletely compressible left popliteal vein with eccentric echogenic thrombus. There is normal color Doppler flow around the thumb thrombus within normal venous waveform on duplex Doppler imaging. Otherwise, the examined veins are patent with normal grayscale appearance and normal compressibility where anatomically feasible. Normal color Doppler flow. Normal venous waveforms on duplex Doppler ultrasound with normal augmentation. IMPRESSION: 1. Nonocclusive LEFT popliteal vein deep vein thrombosis that is new since 12/19/2023. 2. No right lower extremity deep vein thrombosis. Dictated by Bria Boswell MD @ 03/06/2024 10:53:16 AM ----- ADDENDUM ----- Case discussed with Dr. Galvan at 10:56 a.m. on 03/06/2024. The patient had a history of a [place] and these results are not available to review. The patient has been taking blood thinners. Timing of the diagnosis of this prior DVT as well as the location and extent will be very important for interpreting the results of this exam. Dictated by Bria Boswell MD @ Mar 06 2024 10:55AM Signed by:?Bria Boswell MD @03/06/2024 10:53:16 AM (Electronic Signature)
--- NOTE | 2024-03-06 13:15 | PC.NURSE ---
Went into room to bring her shower supplies she wanted to take a shower and she asked me if this [facility] has a psych gonzales. I told her no we don't and then she said that she was not comfortable leaving the hospital yet but didn't say why.
--- NOTE | 2024-03-06 13:40 | P.IMPN_ITS ---
Subjective Time Seen by Provider: 13:15 Date Seen: 03/06/24 Interval history: Argentina is a 63 y/o female with h/o depression, PE and LLE DVT diagnosed in [place] last week - She is not currently homeless Exam Narrative: Exam Narrative: General: [No acute distress.] [Awake, alert, oriented x3.] [No pallor.] [No jaundice.] Oropharynx: Clear. Mucous membranes [moist]. Cardiovascular: [Regular rate and rhythm]. [No murmurs, gallops, or rubs]. Respiratory: [Clear to auscultation bilaterally. No wheezes or crackles]. Abdomen: Bowel sounds [present]. [Soft, nondistended, nontender]. Extremities: [No] pedal edema. [] Const: Vital Signs, click to edit/add: Vital Signs - 24 hr 03/05/24 21:15 03/06/24 03:50 03/06/24 03:53 Temperature 97.7 F 97.6 F 97.6 F Pulse Rate [Left R adial] 72 72 Pulse Rate [Pulse Oximeter] 65 Respiratory Rate 18 16 16 Blood Pressure [Ri ght Arm] 133/62 133/62 Blood Pressure [Ri ght Upper Arm] 124/71 Pulse Oximetry 98 100 100 Oxygen Delivery Me thod Room Air Room Air Room Air 03/06/24 04:17 03/06/24 07:40 03/06/24 11:43 Temperature 98.2 F 97.2 F L Pulse Rate [Left R adial] 73 67 Pulse Rate [Pulse Oximeter] Respiratory Rate 16 16 Blood Pressure [Ri ght Arm] 112/53 L 122/56 L Blood Pressure [Ri ght Upper Arm] Pulse Oximetry 100 93 97 Oxygen Delivery Me thod Room Air Room Air Room Air Labs Labs: Laboratory Results - last 24 hr 03/06/24 03/06/24 01:21 01:50 WBC 8.38 RBC 3.80 L Hgb 10.6 L Hct 33.7 MCV 89 MCH 28 MCHC 32 RDW Coeff of Juan Manuel 15.9 H Plt Count 217 Neut % (Auto) 70.0 Lymph % (Auto) 19.6 L [place] % (Auto) 7.0 Eos % (Auto) 3.0 Baso % (Auto) 0.0 Neut # (Auto) 5.87 Lymph # (Auto) 1.60 [place] # (Auto) 0.60 Eos # (Auto) 0.25 Baso # (Auto) 0.00 Abs Immat Gran (auto) 0.03 Imm/Tot Granulo (auto) 0.4 Sodium 140 Potassium 3.3 L Chloride 108 Carbon Dioxide 25 Anion Gap 7 BUN 17 Creatinine 0.8 Estimated Creat Clear 52.51 Estimated GFR 82 Glucose 141 H Calcium 8.9 Total Bilirubin 0.6 AST 21 ALT 13 Alkaline Phosphatase 106 C-Reactive Protein 1.2 H NT-Pro-B Natriuret Pep 206 Total Protein 7.0 Albumin 3.8 Urine Color Yellow Urine Appearance Clear Urine pH 5.5 Ur Specific [place] <= 1.005 Urine Protein Negative Urine Glucose (UA) Negative Urine Ketones Negative Urine Blood Negative Urine Nitrite Negative Urine Bilirubin Negative Urine Urobilinogen 0.2 Ur Leukocyte Esterase Trace A Urine RBC 0-2 Urine WBC 0-2 Ur Squamous Epith Cells Few Urine Bacteria None Urine Opiates Screen Negative Ur Oxycodone Screen Negative Urine Methadone Screen Negative Ur Barbiturates Screen Negative U Tricyclic Antidepress Negative Ur Phencyclidine Scrn Negative Ur Amphetamines Screen Negative U Methamphetamines Scrn Negative U Benzodiazepines Scrn Negative Urine Cocaine Screen Negative U Marijuana (THC) Screen Negative Ur Drug Screen Comment See Note Ethyl Alcohol < 0.01 L POC Troponin I 0.00 L
[2024-03-06] MEDS: OMEPRAZOLE 20 MG CAPSULE DR 40 MG PO (14:23)
--- NOTE | 2024-03-06 15:31 | P.DS_ITS ---
DS: Providers Provider Time Seen by Provider: 03:15 Date Seen: 03/06/24 Date of admission: 03/06/24 03:22 Primary care physician: Amanda Orellana MD Admitting Clinician: MD Kristina Consults: 03/06/24 05:18 Consult to Pharmacy Informatics Manager [CONS] Routine Comment: Reason for Consult:: Social Service Consult Attending Physician on discharge: Johana Galvan MD Date of Discharge: 03/06/24 DS: Diagnosis Discharge Diagnosis (1) Deep vein thrombosis, lower left extremity: Status: Chronic Problem details: - Diagnosed in [place] 03/02/24, started Eliquis which she says she has been taking twice a day. Worsing [facility] yesterday and today after driving 16 hours from [place] to [place] yesterday. LLE US on 03/02/24 showed Nonocclusive thrombus identified, LEFT common femoral vein, superficial femoral vein, popliteal vein. The LEFT lower leg veins, peroneal posterior tibial, could not be visualized. Today LLE US shows Nonocclusive LEFT popliteal vein deep vein thrombosis. Therefore, it appears clot is decreasing in size since she has been on Eliquis and it remains nonocclusive. - Continue Eliquis. F/u with PCP (Lauren Burnett at [facility]) in 2 weeks, as recommended in clinic yesterday. (2) Hypokalemia: Status: Acute Problem details: - Replaced orally. (3) Homelessness: Status: Resolved Problem details: - Possible pending homelessness, but not actual homelessness at present. Patient may have misunderstood paperwork. SW met with patient today and notes that patient has access to her apartment and belongings. Her keys still work to get into apartment building and her apartment. Paperwork left for her is likely for a future hearing. Resources for legal services and community action center were given to patient today. (4) Anxiety: Status: Acute Problem details: - Has extensive mental health h/o with h/o depression, SI, homelessness (in the past as well), other mental health issues and financial issues. When homegoing was discussed, patient then wanted to go to a mental health facility. DEC assessment for mental health obtained. (5) Type 2 diabetes mellitus: Status: Chronic Problem details: - 10/23/2020 HgbA1C 11.5% - Patient has insulin as part of home medications. Continue current regimen. DS: Summary Hospital Course Hospital Course: This is a 63-year-old female who is a difficult historian, but through investigation into the Medical portal, I was able to find that she has a history of a mental illness, homelessness in the past, history of PE although not at present, and DVT diagnosed last week for which she has been on Eliquis. He also has type 2 diabetes mellitus for which she is on insulin. She was seen in clinic at [facility] yesterday. She saw both a provider and a social media strategist at that time. She was referred to the [facility] for homelessness. She tells me that she went there last night, but they would not help her because she did not meet the criteria to get housing. Today she tells our social media strategist that she has an apartment and her keys still work to get into the building and into the apart ment. There were notices on her apartment door which is why she thought she was evicted. It appears that this is not actually the case, but she may have a hearing coming up to talk about eviction. She has essentially been living in her car while she travels around looking at colleges, because she tells me she is trying to further my education (at the age of 63). In the ER and on the history and physical early this morning, she appeared to have disorganized thoughts, but by the time I spoke with her a little later in the day, she was able to carry on a conversation and was redirectable. She seemed to have organized thoughts during my conversation with her. She notes that she has been taking her medications, but is afraid she will forget her medications because of all the stress lately. When we spoke about discharge, since there are no acute medical concerns (she is on appropriate treatment for DVT and DM2), she became very anxious and started to figure out how she could stay here instead of being discharged. She then asked to go to mental health facility. I ordered a DEC assessment which is being done at this time. If it is determined that she is safe for discharge from a mental health standpoint, then she will be discharged home today. Again it is noted that she has access to her apartment and can go there to live. We have given her resources for legal services and the [facility] in [facility]. She is also connected with the social media strategist and the outpatient clinic at [facility], as she was just there yesterday and has follow-up appointments through there. Time Spent with Patient Time attestation: Total time spent providing and/or coordinating discharge services: Exam Narrative: Exam Narrative: General: No acute distress. Awake, alert, oriented x3. No pallor. No jaundice. Oropharynx: Clear. Mucous membranes moist. Cardiovascular: Regular rate and rhythm. No murmurs, gallops, or rubs. Respiratory: Clear to auscultation bilaterally. No wheezes or crackles. Abdomen: Bowel sounds present. Soft, nondistended, nontender. Extremities: 3+ nonpitting edema of the left leg, 1+ nonpitting edema of the right leg. Const: Vital Signs, click to edit/add: Vital Signs - 24 hr 03/05/24 21:15 03/06/24 03:50 03/06/24 03:53 Temperature 97.7 F 97.6 F 97.6 F Pulse Rate [Left R adial] 72 72 Pulse Rate [Pulse Oximeter] 65 Respiratory Rate 18 16 16 Blood Pressure [Ri ght Arm] 133/62 133/62 Blood Pressure [Ri ght Upper Arm] 124/71 Pulse Oximetry 98 100 100 Oxygen Delivery Me thod Room Air Room Air Room Air 03/06/24 04:17 03/06/24 07:40 03/06/24 11:43 Temperature 98.2 F 97.2 F L Pulse Rate [Left R adial] 73 67 Pulse Rate [Pulse Oximeter] Respiratory Rate 16 16 Blood Pressure [Ri ght Arm] 112/53 L 122/56 L Blood Pressure [Ri ght Upper Arm] Pulse Oximetry 100 93 97 Oxygen Delivery Me thod Room Air Room Air Room Air DS: Data Data Completed and Pending Completed studies during hospitalization: 03/06/2024 EKG: Av dual paced rhythm, 60 beats per minute. Study: US-Extremity Bilateral LEV BILATERAL-03/06/2024 10:45:10 AM Ordering Physician: SHAJI HOOVER M.D. Final Report: INDICATION: Edema, pain, history of DVT COMPARISON: Left lower extremity DVT ultrasound 12/19/2023 TECHNIQUE: Grayscale, color Doppler, and duplex Doppler of the bilateral lower extremity deep and superficial venous systems. FINDINGS: Laterality: Bilateral Examined veins: common femoral, femoral, deep femoral, popliteal, peroneal, posterior tibial greater saphenous Incompletely compressible left popliteal vein with eccentric echogenic thrombus. There is normal color Doppler flow around the thumb thrombus within normal venous waveform on duplex Doppler imaging. Otherwise, the examined veins are patent with normal grayscale appearance and normal compressibility where anatomically feasible. Normal color Doppler flow. Normal venous waveforms on duplex Doppler ultrasound with normal augmentation. IMPRESSION: 1. Nonocclusive LEFT popliteal vein deep vein thrombosis that is new since 12/19/2023. 2. No right lower extremity deep vein thrombosis. Dictated by Bria Boswell MD @ 03/06/2024 10:53:16 AM ----- ADDENDUM ----- Case discussed with Dr. Galvan at 10:56 a.m. on 03/06/2024. The patient had a history of a DVT diagnosed sometime recently out of state and these results are not available to review. The patient has been taking blood thinners. Timing of the diagnosis of this prior DVT as well as the location and extent will be very important for interpreting the results of this exam. Dictated by Bria Boswell MD @ Mar 06 2024 10:55AM Signed by: Bria Boswell MD @03/06/2024 10:53:16 AM (Electronic Signature) Labs on day of discharge: Labs from last 24 hours 03/06/24 03/06/24 01:50 01:21 WBC 8.38 RBC 3.80 L Hgb 10.6 L Hct 33.7 MCV 89 MCH 28 MCHC 32 RDW Coeff of Juan Manuel 15.9 H Plt Count 217 Neut % (Auto) 70.0 Lymph % (Auto) 19.6 L [place] % (Auto) 7.0 Eos % (Auto) 3.0 Baso % (Auto) 0.0 Neut # (Auto) 5.87 Lymph # (Auto) 1.60 [place] # (Auto) 0.60 Eos # (Auto) 0.25 Baso # (Auto) 0.00 Abs Immat Gran (auto) 0.03 Imm/Tot Granulo (auto) 0.4 Sodium 140 Potassium 3.3 L Chloride 108 Carbon Dioxide 25 Anion Gap 7 BUN 17 Creatinine 0.8 Estimated Creat Clear 52.51 Estimated GFR 82 Glucose 141 H Calcium 8.9 Total Bilirubin 0.6 AST 21 ALT 13 Alkaline Phosphatase 106 C-Reactive Protein 1.2 H NT-Pro-B Natriuret Pep 206 Total Protein 7.0 Albumin 3.8 Urine Color Yellow Urine Appearance Clear Urine pH 5.5 Ur Specific [place] <= 1.005 Urine Protein Negative Urine Glucose (UA) Negative Urine Ketones Negative Urine Blood Negative Urine Nitrite Negative Urine Bilirubin Negative Urine Urobilinogen 0.2 Ur Leukocyte Esterase Trace A Urine RBC 0-2 Urine WBC 0-2 Ur Squamous Epith Cells Few Urine Bacteria None Urine Opiates Screen Negative Ur Oxycodone Screen Negative Urine Methadone Screen Negative Ur Barbiturates Screen Negative U Tricyclic Antidepress Negative Ur Phencyclidine Scrn Negative Ur Amphetamines Screen Negative U Methamphetamines Scrn Negative U Benzodiazepines Scrn Negative Urine Cocaine Screen Negative U Marijuana (THC) Screen Negative Ur Drug Screen Comment See Note Ethyl Alcohol < 0.01 L POC Troponin I 0.00 L Preliminary micro results at discharge 03/06/24 01:50 Urine Culture - Preliminary Urine,Clean Catch Culture in Progress Discharge Plan Discharge Disposition: Home, Self-Care Date of Admission: 03/06/24 03:22 Attending Provider on Discharge: Johana Galvan Primary Care Provider: Amanda Orellana Condition: Improved Anticipated Discharge Date/Time: 03/06/24 16:07 Discharge Medications: Continued Eliquis DVT-PE Treat 30D Start 5 mg (74 tabs) tablets,dose pack 5 mg PO BID Acetaminophen PM 25-500 mg tablet 1 tab PO QHS PRN sennosides [senna] 8.6 mg tablet 8.6 mg PO DAILY PRN atorvastatin 40 mg tablet 40 mg PO DAILY minocycline 100 mg capsule 100 mg PO BID pantoprazole 40 mg tablet,delayed release (DR/EC) 40 mg PO DAILY nitroglycerin 0.4 mg tablet, sublingual 0.4 mg sublingual Q5M PRN insulin lispro [Humalog KwikPen Insulin] 100 unit/mL insulin pen 4 - 20 unit subcut TIDWM insulin glargine U-300 conc [Toujeo SoloStar U-300 Insulin] 300 unit/mL (1.5 mL) insulin pen 36 unit subcut HS Discontinued naproxen 500 mg tablet 500 mg PO BID PRN Discharge Orders: Discharge Order (Routine); Ordered 03/07/24 Ordered By: Yamila Griffin Patient Education: Anxiety (GEN), Type 2 Diabetes in the Older Adult (DC) Additional Instructions: Elevate your legs higher than your heart at least 12 hours out of every 24 hours. This will help with the swelling. Keep your appointment with Lauren Burnett at [facility] in 2 weeks. Follow up with the [facility] social media strategist, Liza Centeno, today or tomorrow. Activity Level: Activity as Tolerated Discharge Diet: Diabetic Follow Up Appointments: Amanda Orellana MD [Primary Care Provider] - Forms: MyHealth Info Instructions
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
--- NOTE | 2024-03-06 17:49 | P.IMPN_ITS ---
Subjective Date Seen: 03/06/24 Interval history: 63-year-old female Exam Const: Vital Signs, click to edit/add: Vital Signs - 24 hr 03/05/24 21:15 03/06/24 03:50 03/06/24 03:53 Temperature 97.7 F 97.6 F 97.6 F Pulse Rate [Left R adial] 72 72 Pulse Rate [Pulse Oximeter] 65 Respiratory Rate 18 16 16 Blood Pressure [Ri ght Arm] 133/62 133/62 Blood Pressure [Ri ght Upper Arm] 124/71 Pulse Oximetry 98 100 100 Oxygen Delivery Me thod Room Air Room Air Room Air 03/06/24 04:17 03/06/24 07:40 03/06/24 11:43 Temperature 98.2 F 97.2 F L Pulse Rate [Left R adial] 73 67 Pulse Rate [Pulse Oximeter] Respiratory Rate 16 16 Blood Pressure [Ri ght Arm] 112/53 L 122/56 L Blood Pressure [Ri ght Upper Arm] Pulse Oximetry 100 93 97 Oxygen Delivery Me thod Room Air Room Air Room Air 03/06/24 15:00 Temperature 97.4 F L Pulse Rate [Left R adial] 69 Pulse Rate [Pulse Oximeter] Respiratory Rate 18 Blood Pressure [Ri ght Arm] 115/65 Blood Pressure [Ri ght Upper Arm] Pulse Oximetry 95 Oxygen Delivery Me thod Room Air Labs Labs: Laboratory Results - last 24 hr 03/06/24 03/06/24 01:21 01:50 WBC 8.38 RBC 3.80 L Hgb 10.6 L Hct 33.7 MCV 89 MCH 28 MCHC 32 RDW Coeff of Juan Manuel 15.9 H Plt Count 217 Neut % (Auto) 70.0 Lymph % (Auto) 19.6 L [place] % (Auto) 7.0 Eos % (Auto) 3.0 Baso % (Auto) 0.0 Neut # (Auto) 5.87 Lymph # (Auto) 1.60 [place] # (Auto) 0.60 Eos # (Auto) 0.25 Baso # (Auto) 0.00 Abs Immat Gran (auto) 0.03 Imm/Tot Granulo (auto) 0.4 Sodium 140 Potassium 3.3 L Chloride 108 Carbon Dioxide 25 Anion Gap 7 BUN 17 Creatinine 0.8 Estimated Creat Clear 52.51 Estimated GFR 82 Glucose 141 H Calcium 8.9 Total Bilirubin 0.6 AST 21 ALT 13 Alkaline Phosphatase 106 C-Reactive Protein 1.2 H NT-Pro-B Natriuret Pep 206 Total Protein 7.0 Albumin 3.8 Urine Color Yellow Urine Appearance Clear Urine pH 5.5 Ur Specific [place] <= 1.005 Urine Protein Negative Urine Glucose (UA) Negative Urine Ketones Negative Urine Blood Negative Urine Nitrite Negative Urine Bilirubin Negative Urine Urobilinogen 0.2 Ur Leukocyte Esterase Trace A Urine RBC 0-2 Urine WBC 0-2 Ur Squamous Epith Cells Few Urine Bacteria None Urine Opiates Screen Negative Ur Oxycodone Screen Negative Urine Methadone Screen Negative Ur Barbiturates Screen Negative U Tricyclic Antidepress Negative Ur Phencyclidine Scrn Negative Ur Amphetamines Screen Negative U Methamphetamines Scrn Negative U Benzodiazepines Scrn Negative Urine Cocaine Screen Negative U Marijuana (THC) Screen Negative Ur Drug Screen Comment See Note Ethyl Alcohol < 0.01 L POC Troponin I 0.00 L
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
--- NOTE | 2024-03-06 21:55 | PC.NURSE ---
End of Shift ([id number]): Patient pleasant and cooperative at start of shift. Afebrile. Denies pain. MD in to see patient regarding discharge and patient became upset. Patient started throwing things around the room and making comments about self harm, see previous RN note. MD in to see patient multiple times. Patient moved to 243, placed in paper scrubs and order for 1:1 BLAYNE PRN. Patient did apologized for behavior and agreed to be respectful.
[2024-03-06] MEDS: OLANZapine 5 MG TAB.RAPDIS PO (23:21)
--- NOTE | 2024-03-06 23:45 | PC.NURSE ---
Pt escalating-has order for for zyprexa po. Securt
--- NOTE | 2024-03-06 23:52 | PC.NURSE ---
Security here for rounds.
[2024-03-07 02:38] VITALS: RESP 16
--- NOTE | 2024-03-07 05:23 | PC.NURSE ---
[id number] Pt moved to room 243 at beginning of shift, pleasant and cooperative for majority of evening, had a shower in the evening. Approximately 2230 pt became upset, frantically searching her room and belongings for a black glove she claims she was wearing for her right hand, pt was not wearing this glove when this nurse started the shift and pt was moved into the room at 1900. called Isha ROSARIO, who stated she did not see black glove when she cleaned pt previous room 249, Pt she became upset, claiming we were calling her a liar and crazy although no one had said that to her. Asked SUJIT Mari if she was wearing this glove during the day and Jacey reports that she did not see the glove, reached out to Tao Nelson RN who did pt admission about black glove and he reports that pt was not wearing a black glove when she came onto the unit. Pt began crying laying in bed stating self deprecating comments, ie I'm worthless, everyone else is perfect except for me, I'm crazy. Spoke with pt, attempted to calm her down. Pt received prn Zyprexa, while taking meds pt attempted to pocket pills under her tongue, became mad at nurse when nurse had pt take more sips of water and lift her tongue several times until pt swallowed pills. Pt slept well during the night.
[2024-03-07 07:16] LABS: Potassium* 3.6 mmol/L (3.6-5.1)
--- NOTE | 2024-03-07 10:01 | PC.NURSE ---
Yesica BECKETT completed the discharge for me this AM. The patient was sent with all of her belongings and was escorted out to her car. KRISTA BECKETT BSN
--- NOTE | 2024-03-07 10:25 | PM.DS1 ---
DS: Providers Provider Date Seen: 03/07/24 Date of admission: 03/06/24 03:22 Primary care physician: Amanda Orellana MD Admitting Clinician: Karlo Love MD Consults: 03/06/24 05:18 Consult to Office Clerk Routine [CONS] Routine Comment: Reason for Consult:: Social Service Consult Attending Physician on discharge: PATI Buckley[facility] Date of Discharge: 03/07/24 DS: Diagnosis Discharge Diagnosis (1) Threatening suicide: Status: Acute Problem details: Early assessment was patient was not having suicidal ideation but that abruptly changed when I told her she would be discharged. On reassessment on day of discharge, 03/07, patient in fact states she was not feeling suicidal last night and instead said that during an outburst. She tells me she is not suicidal this morning either, with no plan to harm herself. (2) Borderline personality disorder: Status: Acute Problem details: Manifested as threat of suicide, impulsivity, explosive/unstable emotions. Query other undiagnosed disorders, in reviewing her H&P, would agree with the assessors note of disorganized thinking. (3) Homelessness: Status: Acute Problem details: - Possible pending homelessness, but not actual homelessness at present. Patient may have misunderstood paperwork. SW met with patient today and notes that patient has access to her apartment and belongings. Her keys still work to get into apartment building and her apartment. Paperwork left for her is likely for a future hearing. Resources for legal services and community action center were given to patient today. (4) Deep vein thrombosis, lower left extremity: Status: Chronic Problem details: - Diagnosed in [place] 03/02/24, started Eliquis which she says she has been taking twice a day. Worsing swelling yesterday and today after driving 16 hours from [place] to [place] yesterday. LLE US on 03/02/24 showed Nonocclusive thrombus identified, LEFT common femoral vein, superficial femoral vein, popliteal vein. The LEFT lower leg veins, peroneal posterior tibial, could not be visualized. Today LLE US shows Nonocclusive LEFT popliteal vein deep vein thrombosis. Therefore, it appears clot is decreasing in size since she has been on Eliquis and it remains nonocclusive. - Continue Eliquis. F/u with PCP (Lauren Burnett at [facility]) in 2 weeks, as recommended in clinic yesterday. (5) Type 2 diabetes mellitus: Status: Chronic Problem details: - 10/23/2020 HgbA1C 11.5% - Patient has insulin as part of home medications. Continue current regimen. (6) Hypokalemia: Status: Acute Problem details: - Replaced orally. DS: Summary Hospital Course Hospital Course: This is a 63-year-old female who is a difficult historian, but through investigation into the Medical portal, I was able to find that she has a history of a mental illness, homelessness in the past, history of PE although not at present, and DVT diagnosed last week for which she has been on Eliquis. He also has type 2 diabetes mellitus for which she is on insulin. She was seen in clinic at [facility] yesterday. She saw both a provider and a social director at that time. She was referred to the [facility] for homelessness. She tells me that she went there last night, but they would not help her because she did not meet the criteria to get housing. Today she tells our social director that she has an apartment and her keys still work to get into the building and into the apartment. There were notices on her apartment door which is why she thought she was evicted. It appears that this is not actually the case, but she may have a hearing coming up to talk about eviction. She has essentially been living in her car while she travels around looking at colleges, because she tells me she is trying to further my education (at the age of 63). In the ER and on the history and physical early this morning, she appeared to have disorganized thoughts, but by the time I spoke with her a little later in the day, she was able to carry on a conversation and was redirectable. She seemed to have organized thoughts during my conversation with her. She notes that she has been taking her medications, but is afraid she will forget her medications because of all the stress lately. When we spoke about discharge, since there are no acute medical concerns (she is on appropriate treatment for DVT and DM2), she became very anxious and started to figure out how she could stay here instead of being discharged. She then asked to go to mental health facility. I ordered a DEC assessment which is being done at this time. If it is determined that she is safe for discharge from a mental health standpoint, then she will be discharged home today. Again it is noted that she has access to her apartment and can go there to live. We have given her resources for legal services and the [facility]. She is also connected with the social director and the outpatient clinic at [facility], as she was just there yesterday and has follow-up appointments through there. Status at Discharge Functional status at discharge: independent ambulation Overall status at discharge: patient is back to baseline Time Spent with Patient Time attestation: Total time spent providing and/or coordinating discharge services: Time spent: Greater than 30 minutes Exam Narrative: Exam Narrative: PHYSICAL EXAM General: Pleasant, conversant, NAD Cardiovascular: RRR Pulmonary: No dyspnea Neurological: Alert, poor eye contact, able to answer questions Skin: Warm, dry. Const: Vital Signs, click to edit/add: Vital Signs - 24 hr 03/06/24 11:43 03/06/24 15:00 03/06/24 15:00 Temperature 97.2 F L 97.4 F L Pulse Rate [Left R adial] 67 69 69 Respiratory Rate 16 18 18 Blood Pressure [Ri ght Arm] 122/56 L 115/65 Pulse Oximetry 97 95 Oxygen Delivery Me thod Room Air Room Air 03/06/24 19:00 03/06/24 23:00 03/06/24 23:00 Temperature 98.6 F Pulse Rate [Left R adial] 95 95 Respiratory Rate 18 18 Blood Pressure [Ri ght Arm] 126/75 Pulse Oximetry 96 Oxygen Delivery Me thod Room Air 03/07/24 02:38 Temperature Pulse Rate [Left R adial] Respiratory Rate 16 Blood Pressure [Ri ght Arm] Pulse Oximetry Oxygen Delivery Me thod DS: Data Data Completed and Pending Labs on day of discharge: Labs from last 24 hours 03/06/24 05:53 Potassium 3.6 Preliminary micro results at discharge 03/06/24 01:50 Urine Culture - Preliminary Urine,Clean Catch Imaging Venous US: Attestation: I have reviewed the pertinent imaging results. Radiologist's impression: [address] [address] Ultrasound Report Patient: Marilee Stephens MR#: [id number] : 1960 Acct:[id number] Loc: [id number] Service Date: 03/06/[address]: Karlo Love M.D. Ordering Physician: Lauren Childers M.D. Date of Service: 03/06/24 Procedure(s): US venous LE BI Accession Number(s): [id number] cc: Lauren Childers M.D.; Amanda Orellana M.D.~ Patient: MARILEE STEPHENS Facility:?[facility] Patient ID:?[id number] Site Patient ID:?[id number]. Site :?1960 Study:?US-Extremity Bilateral LEV BILATERAL-03/06/2024 10:45:10 AM Ordering Physician:KARLO MEJIA M.D. Final Report: INDICATION: Edema, pain, history of DVT COMPARISON: Left lower extremity DVT ultrasound 12/19/2023 TECHNIQUE: Grayscale, color Doppler, and duplex Doppler of the bilateral lower extremity deep and superficial venous systems. FINDINGS: Laterality: Bilateral Examined veins: common femoral, femoral, deep femoral, popliteal, peroneal, posterior tibial greater saphenous Incompletely compressible left popliteal vein with eccentric echogenic thrombus. There is normal color Doppler flow around the thumb thrombus within normal venous waveform on duplex Doppler imaging. Otherwise, the examined veins are patent with normal grayscale appearance and normal compressibility where anatomically feasible. Normal color Doppler flow. Normal venous waveforms on duplex Doppler ultrasound with normal augmentation. IMPRESSION: 1. Nonocclusive LEFT popliteal vein deep vein thrombosis that is new since 12/19/2023. 2. No right lower extremity deep vein thrombosis. Discharge Plan Discharge Disposition: Home, Self-Care Date of Admission: 03/06/24 03:22 Attending Provider on Discharge: Johana Galvan Primary Care Provider: Amanda Orellana Condition: Improved Anticipated Discharge Date/Time: 03/06/24 16:07 Discharge Medications: Continued Eliquis DVT-PE Treat 30D Start 5 mg (74 tabs) tablets,dose pack 5 mg PO BID Acetaminophen PM 25-500 mg tablet 1 tab PO QHS PRN sennosides [senna] 8.6 mg tablet 8.6 mg PO DAILY PRN atorvastatin 40 mg tablet 40 mg PO DAILY minocycline 100 mg capsule 100 mg PO BID pantoprazole 40 mg tablet,delayed release (DR/EC) 40 mg PO DAILY nitroglycerin 0.4 mg tablet, sublingual 0.4 mg sublingual Q5M PRN insulin lispro [Humalog KwikPen Insulin] 100 unit/mL insulin pen 4 - 20 unit subcut TIDWM insulin glargine U-300 conc [Toujeo SoloStar U-300 Insulin] 300 unit/mL (1.5 mL) insulin pen 36 unit subcut HS Discontinued naproxen 500 mg tablet 500 mg PO BID PRN Discharge Orders: Discharge Order (Routine); Ordered 03/07/24 Ordered By: Yamila Griffin Patient Education: Anxiety (GEN), Type 2 Diabetes in the Older Adult (DC) Additional Instructions: Elevate your legs higher than your heart at least 12 hours out of every 24 hours. This will help with the swelling. Keep your appointment with Lauren Burnett at [facility] in 2 weeks. Follow up with the [facility] social director, Liza Centeno, today or tomorrow. Activity Level: Activity as Tolerated Discharge Diet: Diabetic Follow Up Appointments: Amanda Orellana MD [Primary Care Provider] - Forms: [facility] Info Instructions
== END 2024-03-07 09:00 | disposition home or self-care (01) ==
LOC: ED 03-06 02:47 → MEDSURG 03-06 03:23
PROVIDERS: Family Medicine; Admitting Provider Family Medicine; Emergency Provider Family Medicine; PCP Family Medicine; Visit Provider Family Medicine
DX: R60.0 Localized edema (principal); Z59.9 Problem related to housing and economic circumstances, unspecified; Z59.00 Homelessness unspecified; I82.432 Acute embolism and thrombosis of left popliteal vein; E11.9 Type 2 diabetes mellitus without complications; F60.3 Borderline personality disorder; R45.851 Suicidal ideations; M79.605 Pain in left leg; R07.9 Chest pain, unspecified; E87.6 Hypokalemia; F41.9 Anxiety disorder, unspecified; F32.A Depression, unspecified; M79.7 Fibromyalgia; Z95.0 Presence of cardiac pacemaker; Z98.890 Other specified postprocedural states; Z79.4 Long term (current) use of insulin; Z86.59 Personal history of other mental and behavioral disorders
CPT/HCPCS: 36415; 80053; 80306; 81001; 82077; 82962; 83880; 84132; 84484; 85025; 86140; 87086; 93970; 96372; 99284; 99285; A9270; G0378

== ENCOUNTER 2024-05-09 21:30 | Emergency (ER) | payer MEDICARE, SELFPAY ==
[2024-05-09 21:47] VITALS: BP 100/62; PULSE 75; RESP 18; TEMP 36.3; O2SAT 98; BMI 36.6
--- NOTE | 2024-05-09 22:23 | ED_ITS ---
HPI - General Adult General Chief complaint: Abdominal Pain Stated complaint: constipated, abd pain Time Seen by Provider: 05/09/24 22:00 History of Present Illness HPI narrative: Patient here with lower abdominal cramping and constipation for the last week. She is not sure when her last bowel movement was. No OTC stool softners attempted yet. She is drinking gatorade and eating fruits and vegetables 63-year-old woman presenting to the emergency department with concern of constipation. She is experiencing lower abdominal cramping. Has not tried any [id number] treatments at this point. She is trying to eat more fruits and vegetables she says and has been drinking Gatorade. No fever. Last bowel movements she recalls are small and hard. Sometimes has dysuria. Related Data Home Medications ?Medication ?Instructions ?Recorded ?Confirmed atorvastatin 40 mg tablet 40 mg PO DAILY 12/19/23 03/06/24 insulin glargine U-300 conc 300 36 unit subcut HS 12/19/23 03/06/24 unit/mL (1.5 mL) subcutaneous pen (Toujeo SoloStar U-300 Insulin) insulin lispro 100 unit/mL 4 - 20 unit subcut TIDWM 12/19/23 03/06/24 subcutaneous pen (Humalog KwikPen (U-100) Insulin) minocycline 100 mg capsule 100 mg PO BID 12/19/23 03/06/24 nitroglycerin 0.4 mg sublingual 0.4 mg sublingual Q5M PRN 12/19/23 03/06/24 tablet pantoprazole 40 mg tablet,delayed 40 mg PO DAILY 12/19/23 03/06/24 release apixaban 5 mg (74 tabs) tablets in 5 mg PO BID 03/06/24 03/06/24 a dose pack (Eliquis DVT-PE Treat 30D Start) diphenhydramine 25 1 tab PO QHS PRN 03/06/24 03/06/24 mg-acetaminophen 500 mg tablet (Acetaminophen PM) sennosides 8.6 mg tablet (senna) 8.6 mg PO DAILY PRN 03/06/24 03/06/24 Previous Rx's ?Medication ?Instructions ?Recorded magnesium citrate 296 ml PO QHS PRN constipation 05/10/24 #296 mL polyethylene glycol 3350 17 17 g PO BID PRN #170 grams 05/10/24 gram/dose oral powder (Miralax) sodium phosphates 19 gram-7 118 ml FL DAILY PRN constipation 05/10/24 gram/118 mL enema (Enema) #266 mL Allergies Allergy/AdvReac Type Severity Reaction Status Date / Time Iodinated Contrast Media Allergy Unknown Verified 05/22/24 11:04 Review of Systems Status of ROS: Reports: 6 or more systems reviewed and unremarkable except as noted in History and below PFSH [facility] Medical History Borderline personality disorder ?F60.3 - Borderline personality disorder (ICD-10) Pacemaker ?Z95.0 - Presence of cardiac pacemaker (ICD-10) Normal esophagogastroduodenoscopy (EGD) ?Z01.89 - Encounter for other specified special examinations (ICD-10) Normal coronary angiogram Diabetic peripheral neuropathy ?E11.42 - Type 2 diabetes mellitus with diabetic polyneuropathy (ICD-10) Esophageal polyp (~2018) ?K22.81 - Esophageal polyp (ICD-10) Lung nodule ?R91.1 - Solitary pulmonary nodule (ICD-10) Splenomegaly ?R16.1 - Splenomegaly, not elsewhere classified (ICD-10) Rotator cuff tear, right ?M75.101 - Unspecified rotator cuff tear or rupture of right shoulder, not specified as traumatic (ICD-10) Hyperlipidemia ?E78.5 - Hyperlipidemia, unspecified (ICD-10) Left bundle branch block ?I44.7 - Left bundle-branch block, unspecified (ICD-10) Clostridioides difficile infection ?A49.8 - Other bacterial infections of unspecified site (ICD-10) Obesity, Class II, BMI 35-39.9 ?E66.9 - Obesity, unspecified (ICD-10) Deep vein thrombosis, lower left extremity ?I82.402 - Acute embolism and thrombosis of unspecified deep veins of left lower extremity (ICD-10) Pulmonary embolism ?I26.99 - Other pulmonary embolism without acute cor pulmonale (ICD-10) Type 2 diabetes mellitus ?E11.9 - Type 2 diabetes mellitus without complications (ICD-10) Suicidal ideation ?R45.851 - Suicidal ideations (ICD-10) Depression ?F32.A - Depression, unspecified (ICD-10) Surgical History S/P lumbar fusion (~1984) ?Z98.1 - Arthrodesis status (ICD-10) Hx laparoscopic cholecystectomy (~11/11/17) ?Z90.49 - Acquired absence of other specified parts of digestive tract (ICD- 10) H/O right knee surgery ?Z98.890 - Other specified postprocedural states (ICD-10) H/O: hysterectomy ?Z90.710 - Acquired absence of both cervix and uterus (ICD-10) Social History What is your current living situation?: I presently do not have a place to live Problems where you live: other Problems where you live details: Pt evicted from Apartment 1 day ago In the past 12 months, utilities in danger of being shut off: no In past 12 months, lack of transportation kept you from medical appts, meetings, work, or getting things needed for daily living: no In the past 12 mos, have been you worried that your food would run out before you had money to buy more?: declined to answer In the past 12 mos, the food you bought just didn't last and you didn't have money to buy more?: declined to answer Highest level of school completed/degree received: Associate degree: occupational, technical, vocational program Smoking Status: Never smoker Second hand tobacco smoke exposure: No How often do you have a drink containing alcohol: never AUDIT-C Alcohol total score: 0 Non-prescribed substance use: denies use Caffeine: Yes (1 cup Coffee per day) How often does anyone, including family, friends and others, physically hurt you : never How often does anyone, including family, friends and others, insult or talk down to you: never How often does anyone, including family, friends and others, threaten you with harm: never How often does anyone, including family, friends and others, scream or curse at you: never service: No Exam Narrative: Exam Narrative: Pleasant. Clearly uncomfortable. Slightly labored with her breathing. Lungs with trace expiratory wheeze. Removed with present bowel sounds overweight and soft. Uncomfortable generally to abdominal palpation. No flank pain. Well- perfused peripherally. No extremity edema. Const: Vital Signs, click to edit/add: Vital Signs - 24 hr 07/17/24 21:47 Temperature 97.3 F L Pulse Rate [Pulse Oximeter] 75 Respiratory Rate 18 Blood Pressure [Ri ght Upper Arm] 100/62 Pulse Oximetry 98 Oxygen Delivery Me thod Room Air Documenting provider has reviewed patient's vital signs: yes Course Vital Signs Vital signs: Initial Vital Signs Temperature 97.3 F L 05/09/24 21:47 Temperature Source Temporal Artery Scan 05/09/24 21:47 Pulse Rate 75 05/09/24 21:47 Pulse Rhythm Regular 05/09/24 21:47 Respiratory Rate 18 05/09/24 21:47 Blood Pressure 100/62 05/09/24 21:47 Blood Pressure Mean 74 05/09/24 21:47 Blood Pressure Position Sitting 05/09/24 21:47 Pulse Oximetry 98 05/09/24 21:47 Oxygen Delivery Method Room Air 05/09/24 21:47 Vital Signs Temperature 97.3 F L 05/09/24 21:47 Pulse Rate 75 05/09/24 21:47 Respiratory Rate 18 05/09/24 21:47 Blood Pressure 100/62 05/09/24 21:47 Pulse Oximetry 98 05/09/24 21:47 Oxygen Delivery Method Room Air 05/09/24 21:47 Temperature 97.3 F L 05/09/24 21:47 Pulse Rate 75 05/09/24 21:47 Respiratory Rate 18 05/09/24 21:47 Blood Pressure 100/62 05/09/24 21:47 Pulse Oximetry 98 05/09/24 21:47 Oxygen Delivery Method Room Air 05/09/24 21:47 Medical Decision Making MDM Narrative Medical decision making narrative: Really does sound to be constipation per description. This would be consistent with cramping pain she has been describing. Does not have other indication of infection. Has been passing flatus. Would though check urinalysis. Abdominal x-ray I think to confirm constipation and evaluate for any concerning or fluid levels. Would wait with urinalysis culture to initiate treatment Will be dispensing however suppository and Mag citrate for home See patient discharge plan for further discussion Lab Data Lab results reviewed: Yes I reviewed the patient's lab results Labs: Lab Results 05/09/24 05/09/24 Range/Units 22:32 23:40 Urine Color Yellow Angely A (Yellow) Urine Appearance Clear Clear (Clear) Urine pH 6.5 5.5 (5.0-8.5) Ur Specific Casey 1.020 >= 1.030 (1.000-1.030) Urine Protein Negative Negative (Negative) Urine Glucose (UA) Negative Negative (Negative) Urine Ketones Trace A Negative (Negative) Urine Blood Negative Negative (Negative) Urine Nitrite Negative Negative (Negative) Urine Bilirubin Negative Negative (Negative) Urine Urobilinogen 0.2 0.2 (0.2-1.0) Ur Leukocyte Esterase 1+ A Negative (Negative) Urine RBC 0-2 0-2 (0-2) Urine WBC 2-5 0-2 (0-5) Ur Squamous Epith Cells Few None (None-Few) Amorphous Sediment Few A (None) Urine Bacteria Few A None (None) Discharge Plan Discharge Clinical Impression: Constipation, Abdominal pain Patient Disposition: Home, Self-Care Condition: Stable Additional Instructions: Stay well-hydrated drinking 2 - 3 L of water daily. I would place the suppository yet tonight and drink 1/2 or the whole bottle of magnesium citrate. Sending in polyethylene glycol also known as MiraLax, another prescription for magnesium citrate and enemas. All these things you can also purchase [id number]. I would place enema and repeat in one hour if no good results. Take a bottle magnesium citrate and repeat next day if no good result. In the meantime begin dosing with MiraLax 1 tbsp in at least 8 oz at of liquid. Can take 3 doses daily and titrate to stool consistency. Take for at least the next week. Prescriptions: New Enema 19-7 gram/118 mL enema 118 ml FL DAILY PRN (Reason: constipation) Qty: 266 1RF magnesium citrate Solution 296 ml PO QHS PRN (Reason: constipation) Qty: 296 1RF polyethylene glycol 3350 [Miralax] 17 gram/dose powder 17 g PO BID PRNQty: 170 1RF No Action Eliquis DVT-PE Treat 30D Start 5 mg (74 tabs) tablets,dose pack 5 mg PO BID Acetaminophen PM 25-500 mg tablet 1 tab PO QHS PRN sennosides [senna] 8.6 mg tablet 8.6 mg PO DAILY PRN atorvastatin 40 mg tablet 40 mg PO DAILY minocycline 100 mg capsule 100 mg PO BID pantoprazole 40 mg tablet,delayed release (DR/EC) 40 mg PO DAILY nitroglycerin 0.4 mg tablet, sublingual 0.4 mg sublingual Q5M PRN insulin lispro [Humalog KwikPen Insulin] 100 unit/mL insulin pen 4 - 20 unit subcut TIDWM insulin glargine U-300 conc [Toujeo SoloStar U-300 Insulin] 300 unit/mL (1.5 mL) insulin pen 36 unit subcut HS Follow Up/Referrals: Amanda Orellana MD [Primary Care Provider] - Stand Alone Forms: [facility] Info Instructions
--- NOTE | 2024-05-09 22:35 | CRLHL7_ITS ---
For Patients: As a result of the Century Cures Act, medical imaging exams and procedure reports are released immediately into your electronic medical record. You may view this report before your referring provider. If you have questions, please contact your health care provider. INDICATION: Abdominal pain. Constipation. COMPARISON: None available. TECHNIQUE: Upright and supine views of the abdomen. FINDINGS: No free air on upright view. Normal bowel gas pattern. Moderate amount of retained fecal material throughout the colon. Postoperative changes in the lumbar spine. Cholecystectomy clips. Partially visualized cardiac pacer leads. Degenerative changes of the lumbar spine and both SI joints. Mild degenerative changes at the hip joints. IMPRESSION: Normal bowel gas pattern. Moderate amount of retained fecal material throughout the colon. Dictated by Russel Hart MD @ 05/09/2024 11:55:42 PM (Electronically Signed)
[2024-05-09 22:54] LABS: Appearance Urine Clear (Clear); Bilirubin Urine Negative (Negative); Blood Urine Negative (Negative); Color Urine Yellow (Yellow); Glucose Urine Negative (Negative); Ketones Urine Trace (Negative); Leukocyte Esterase Urine 1+ (Negative); Nitrite Urine Negative (Negative); Protein Urine Negative (Negative); Urobilinogen Urine 0.2 (0.2-1.0); pH Urine 6.5 (5.0-8.5)
[2024-05-09 23:02] LABS: Amorphous Sediment Urine Few; Bacteria Urine Few; RBC Urine 0-2 (0-2); Squamous Epithelial Cell Urine Few (None-Few)
[2024-05-10 00:05] LABS: Appearance Urine Clear (Clear); Bilirubin Urine Negative (Negative); Blood Urine Negative (Negative); Color Urine Amber (Yellow); Glucose Urine Negative (Negative); Ketones Urine Negative (Negative); Leukocyte Esterase Urine Negative (Negative); Nitrite Urine Negative (Negative); Protein Urine Negative (Negative); Specific Gravity Urine >= 1.030 (1.000-1.030); Urobilinogen Urine 0.2 (0.2-1.0); pH Urine 5.5 (5.0-8.5)
[2024-05-10 00:20] LABS: RBC Urine 0-2 (0-2); WBC Urine 0-2 (0-5)
--- NOTE | 2024-05-10 01:03 | PC.NURSE ---
provider requested to send meds in [facility] home wtih patient. patient left with out DC paperwork before meds were brought to unit from pharmacy. patient called and ML on voicemail to call back the ER if she would like the meds. meds are OTC. updated
== END 2024-05-10 01:05 | disposition home or self-care (01) ==
PROVIDERS: Emergency Provider Family Medicine; PCP Family Medicine
DX: R07.89 Other chest pain (principal)
CPT/HCPCS: 74019; 81001; 87086; 99283; 99284

== ENCOUNTER 2024-05-22 10:58 | Emergency (ER) | payer MEDICARE, SELFPAY ==
[2024-05-22] VITALS (9 sets, daily range): BP systolic 113–128; BP diastolic 57–66; PULSE 74–84; RESP 16; TEMP 35.7; O2SAT 90–99; BMI 34.9
--- NOTE | 2024-05-22 11:25 | ED.CHESTPAIN ---
HPI - Chest Pain General Chief Complaint: Chest Pain Stated Complaint: dizzy,lightheaded Time Seen by Provider: 05/22/24 11:16 History of Present Illness HPI narrative: This 63-year-old female comes in reporting some chest discomfort. She states that she woke up with this discomfort this morning at about 6:00 a.m., about 5 hours prior to arrival. She was on a 2 hour at scene all of [place] and reported this discomfort along with some mild symptoms of nausea, lightheadedness, shortness of breath. She does have a history of coronary artery disease and has had 2 stents placed. The most recent 1 was done about 2 and half years ago. She also has a pacer. She arrives here with normal vital signs. She does report a headache on the right side of her head. She did not take the nitroglycerin prior to arrival . Related Data Home Medications ?Medication ?Instructions ?Recorded ?Confirmed atorvastatin 40 mg tablet 40 mg PO DAILY 12/19/23 03/06/24 insulin glargine U-300 conc 300 36 unit subcut HS 12/19/23 03/06/24 unit/mL (1.5 mL) subcutaneous pen (Toujeo SoloStar U-300 Insulin) insulin lispro 100 unit/mL 4 - 20 unit subcut TIDWM 12/19/23 03/06/24 subcutaneous pen (Humalog KwikPen (U-100) Insulin) minocycline 100 mg capsule 100 mg PO BID 12/19/23 03/06/24 nitroglycerin 0.4 mg sublingual 0.4 mg sublingual Q5M PRN 12/19/23 03/06/24 tablet pantoprazole 40 mg tablet,delayed 40 mg PO DAILY 12/19/23 03/06/24 release apixaban 5 mg (74 tabs) tablets in 5 mg PO BID 03/06/24 03/06/24 a dose pack (EliquYuenimei DVT-PE Treat 30D Start) diphenhydramine 25 1 tab PO QHS PRN 03/06/24 03/06/24 mg-acetaminophen 500 mg tablet (Acetaminophen PM) sennosides 8.6 mg tablet (senna) 8.6 mg PO DAILY PRN 03/06/24 03/06/24 Previous Rx's ?Medication ?Instructions ?Recorded magnesium citrate 296 ml PO QHS PRN constipation 05/10/24 #296 mL polyethylene glycol 3350 17 17 g PO BID PRN #170 grams 05/10/24 gram/dose oral powder (Miralax) sodium phosphates 19 gram-7 118 ml VA DAILY PRN constipation 05/10/24 gram/118 mL enema (Enema) #266 mL ketorolac 10 mg tablet 10 mg PO Q8H 5 days #15 tabs 05/22/24 ondansetron HCl 4 mg tablet 4 mg PO Q6H #10 tabs 05/22/24 Allergies Allergy/AdvReac Type Severity Reaction Status Date / Time Iodinated Contrast Media Allergy Unknown Verified 05/22/24 11:04 Review of Systems Status of ROS Reports: 10 or more systems reviewed and unremarkable except as noted in History and below Narrative Constitutional: No fevers, no weight gain or loss. Eyes: No discharge. No vision changes. HENT: No congestion, no sore throat, no ear pain. Cardiovascular: No palpitations. Chest discomfort as described above. Respiratory: No wheezes, no cough. Gastrointestinal: No abdominal pain, no vomiting, no diarrhea. Genitourinary: No dysuria, no hematuria. Musculoskeletal: Normal range of motion. Skin: No rashes, no pruritis. Neurological: No dizziness, weakness, sensory change, speech change. Endo/Heme/Allergies: No bruising or bleeding. No polydipsia. Pysch: no suicidality, no anxiety, no insomnia. All other systems reviewed and are negative. [facility] Medical History Borderline personality disorder ?F60.3 - Borderline personality disorder (ICD-10) Pacemaker ?Z95.0 - Presence of cardiac pacemaker (ICD-10) Normal esophagogastroduodenoscopy (EGD) ?Z01.89 - Encounter for other specified special examinations (ICD-10) Normal coronary angiogram Diabetic peripheral neuropathy ?E11.42 - Type 2 diabetes mellitus with diabetic polyneuropathy (ICD-10) Esophageal polyp (~2018) ?K22.81 - Esophageal polyp (ICD-10) Lung nodule ?R91.1 - Solitary pulmonary nodule (ICD-10) Splenomegaly ?R16.1 - Splenomegaly, not elsewhere classified (ICD-10) Rotator cuff tear, right ?M75.101 - Unspecified rotator cuff tear or rupture of right shoulder, not specified as traumatic (ICD-10) Hyperlipidemia ?E78.5 - Hyperlipidemia, unspecified (ICD-10) Left bundle branch block ?I44.7 - Left bundle-branch block, unspecified (ICD-10) Clostridioides difficile infection ?A49.8 - Other bacterial infections of unspecified site (ICD-10) Obesity, Class II, BMI 35-39.9 ?E66.9 - Obesity, unspecified (ICD-10) Deep vein thrombosis, lower left extremity ?I82.402 - Acute embolism and thrombosis of unspecified deep veins of left lower extremity (ICD-10) Pulmonary embolism ?I26.99 - Other pulmonary embolism without acute cor pulmonale (ICD-10) Type 2 diabetes mellitus ?E11.9 - Type 2 diabetes mellitus without complications (ICD-10) Suicidal ideation ?R45.851 - Suicidal ideations (ICD-10) Depression ?F32.A - Depression, unspecified (ICD-10) Surgical History S/P lumbar fusion (~1984) ?Z98.1 - Arthrodesis status (ICD-10) Hx laparoscopic cholecystectomy (~11/11/17) ?Z90.49 - Acquired absence of other specified parts of digestive tract (ICD-10) H/O right knee surgery ?Z98.890 - Other specified postprocedural states (ICD-10) H/O: hysterectomy ?Z90.710 - Acquired absence of both cervix and uterus (ICD-10) Social History What is your current living situation?: I presently do not have a place to live Problems where you live: other Problems where you live details: Pt evicted from Apartment 1 day ago In the past 12 months, utilities in danger of being shut off: no In past 12 months, lack of transportation kept you from medical appts, meetings, work, or getting things needed for daily living: no In the past 12 mos, have been you worried that your food would run out before you had money to buy more?: declined to answer In the past 12 mos, the food you bought just didn't last and you didn't have money to buy more?: declined to answer Highest level of school completed/degree received: Associate degree: occupational, technical, vocational program Smoking Status: Never smoker Second hand tobacco smoke exposure: No How often do you have a drink containing alcohol: never AUDIT-C Alcohol total score: 0 Non-prescribed substance use: denies use Caffeine: Yes (1 cup Coffee per day) How often does anyone, including family, friends and others, physically hurt you: never How often does anyone, including family, friends and others, insult or talk down to you: never How often does anyone, including family, friends and others, threaten you with harm: never How often does anyone, including family, friends and others, scream or curse at you: never service: No Exam Narrative Exam Narrative: Constitutional: Well-developed, well-nourished, no acute distress. HEENT: Normocephalic, atraumatic. Neck: Normal range of motion. Nontender. Supple. Heart: Regular. No murmurs. Normal rate. Intact distal pulses. Lungs: Clear to auscultation. No chest discomfort. No wheezes, rhonchi, or rales. Abdomen: Normal bowel sounds. Nontender. No rebound tenderness. Genitalia: Deferred. Back: No midline tenderness. Normal range of motion. Extremities: Normal range of motion. No injury. Skin: Intact. No rash. Warm. No erythema or pallor. Neurologic: No altered sensation. No weakness. Alert and oriented. Psychiatric: No suicidality. No anxiety or depression. No insomnia. Nursing notes and vitals signs are reviewed. Const Vital Signs, click to edit/add: Vital Signs - 24 hr 05/22/24 11:00 05/22/24 11:21 05/22/24 11:32 Temperature 96.3 F L Pulse Rate 78 77 Pulse Rate [Pulse Oximeter] 84 Respiratory Rate 16 Blood Pressure 113/57 L Blood Pressure [Right Upper Arm] 128/66 Pulse Oximetry 97 98 91 Oxygen Delivery Method Room Air 05/22/24 11:45 05/22/24 12:00 05/22/24 12:02 Temperature Pulse Rate 76 74 74 Pulse Rate [Pulse Oximeter] Respiratory Rate Blood Pressure 115/64 Blood Pressure [Right Upper Arm] Pulse Oximetry 94 94 90 Oxygen Delivery Method 05/22/24 12:30 05/22/24 12:32 05/22/24 12:45 Temperature Pulse Rate 75 78 76 Pulse Rate [Pulse Oximeter] Respiratory Rate Blood Pressure 123/66 Blood Pressure [Right Upper Arm] Pulse Oximetry 99 98 96 Oxygen Delivery Method Course Vital Signs Vital signs: Initial Vital Signs Temperature 96.3 F L 05/22/24 11:00 Temperature Source Temporal Artery Scan 05/22/24 11:00 Pulse Rate 84 05/22/24 11:00 Respiratory Rate 16 05/22/24 11:00 Blood Pressure 128/66 05/22/24 11:00 Blood Pressure Mean 86 05/22/24 11:00 Blood Pressure Position Sitting 05/22/24 11:00 Pulse Oximetry 97 05/22/24 11:00 Oxygen Delivery Method Room Air 05/22/24 11:00 Vital Signs Temperature 96.3 F L 05/22/24 11:00 Pulse Rate 84 05/22/24 11:00 Respiratory Rate 16 05/22/24 11:00 Blood Pressure 128/66 05/22/24 11:00 Pulse Oximetry 97 05/22/24 11:00 Oxygen Delivery Method Room Air 05/22/24 11:00 Temperature 96.3 F L 05/22/24 11:00 Pulse Rate 76 05/22/24 12:45 Respiratory Rate 16 05/22/24 11:00 Blood Pressure 123/66 05/22/24 12:32 Pulse Oximetry 96 05/22/24 12:45 Oxygen Delivery Method Room Air 05/22/24 11:00 Medications Administered Medications: Discontinued Medications Generic Name Dose Route Start Last Admin Trade Name Freq PRN Reason Stop Dose Admin Aspirin 324 mg 05/22/24 11:23 05/22/24 11:35 Aspirin 81 Mg Tab.Chew PO 05/22/24 11:24 324 mg ONCE ONE Administration Ketorolac Tromethamine 15 mg 05/22/24 12:06 05/22/24 12:16 Ketorolac 30 Mg/Ml Inj IVP 05/22/24 12:07 15 mg ONCE ONE Administration MDM - Chest Pain MDM Narrative Medical decision making narrative: This patient comes in reporting chest discomfort as described above. She arrives here with normal vital signs and EKG shows a ventricular paced rhythm with no specific ST or T-wave abnormalities. The patient states that she has a cardiac history with a couple stents placed in the past. She also has history of fibromyalgia and costal chondritis. Additionally she has anxiety symptoms. An IV was established and the patient did receive an IV dose of Toradol 15 mg. She also received aspirin 324 mg orally. The lab results returned with normal findings. Her troponin returns at 0. A repeat troponin is obtained and also returns in normal range. This patient has other causes for chest pain that she states she is always uncertain as to what may be causing her aches and pains. She also reports history of back surgeries. She feels okay to be discharged home. I did recommend that she follow up with household appliance mechanic for ongoing management. She did received prescription for Toradol and Zofran. I advised her to take a baby aspirin daily. Lab Data Labs: Lab Results 05/22/24 05/22/24 05/22/24 Range/Units 11:17 11:24 13:11 WBC 8.94 (4.50-11.00) K/uL RBC 3.83 L (4.00-5.20) m/uL Hgb 10.3 L (12.0-16.0) gm/dL Hct 33.6 (33.0-51.0) % MCV 88 (80-100) fL MCH 27 (26-34) pg MCHC 31 L (32-36) gm/dL RDW Coeff of Juan Manuel 16.6 H (11.5-15.5) % Plt Count 188 (140-440) K/uL Neut % (Auto) 83.5 H (42.0-72.0) % Lymph % (Auto) 9.8 L (20-44) % Grant % (Auto) 5.8 (0.0-11.0) % Eos % (Auto) 0.7 (0.0-7.0) % Baso % (Auto) 0.1 (0.0-3.0) % Neut # (Auto) 7.50 H (1.7-7.0) K/uL Lymph # (Auto) 0.90 (0.90-2.90) K/uL Grant # (Auto) 0.50 (0.00-0.90) K/UL Eos # (Auto) 0.06 (0.00-0.50) K/uL Baso # (Auto) 0.01 (0.00-0.30) K/uL Abs Immat Gran (auto) 0.01 (0.00-0.30) K/uL Imm/Tot Granulo (auto) 0.1 % Sodium 141 (135-149) mmol/L Potassium 3.8 (3.6-5.1) mmol/L Chloride 109 (96-114) mmol/L Carbon Dioxide 22 (20-32) mmol/L Anion Gap 10 (7-15) mEq/L BUN 20 (7-30) mg/dL Creatinine 0.8 (0.5-1.5) mg/dL Estimated Creat Clear 50.47 Estimated GFR 82 ml/min Glucose 191 H (60-115) mg/dL Calcium 9.0 (8.4-10.6) mg/dL POC Troponin I 0.02 0.00 L (0.01-0.04) ng/ml ECG Data Attestation: I personally reviewed and interpreted this ECG as follows: Interpretation: Ventricular paced rhythm with a rate at 79 beats per minute. There are no specific ST or T-wave abnormalities. Discharge Plan Discharge Clinical Impression: Atypical chest pain Patient Disposition: Home, Self-Care Condition: Stable Additional Instructions: Take a baby aspirin daily. Follow-up with household appliance mechanic for ongoing management. Return if symptoms are recurrent or worsening. Prescriptions: New ondansetron HCl 4 mg tablet 4 mg PO Q6H Qty: 10 0RF ketorolac 10 mg tablet 10 mg PO Q8H 5 Days Qty: 15 0RF No Action Eliquis DVT-PE Treat 30D Start 5 mg (74 tabs) tablets,dose pack 5 mg PO BID Acetaminophen PM 25-500 mg tablet 1 tab PO QHS PRN sennosides [senna] 8.6 mg tablet 8.6 mg PO DAILY PRN atorvastatin 40 mg tablet 40 mg PO DAILY minocycline 100 mg capsule 100 mg PO BID pantoprazole 40 mg tablet,delayed release (DR/EC) 40 mg PO DAILY nitroglycerin 0.4 mg tablet, sublingual 0.4 mg sublingual Q5M PRN insulin lispro [Humalog KwikPen Insulin] 100 unit/mL insulin pen 4 - 20 unit subcut TIDWM insulin glargine U-300 conc [Toujeo SoloStar U-300 Insulin] 300 unit/mL (1.5 mL) insulin pen 36 unit subcut HS Enema 19-7 gram/118 mL enema 118 ml VA DAILY PRN (Reason: constipation) Qty: 266 1RF magnesium citrate Solution 296 ml PO QHS PRN (Reason: constipation) Qty: 296 1RF polyethylene glycol 3350 [Miralax] 17 gram/dose powder 17 g PO BID PRNQty: 170 1RF Follow Up/Referrals: Amanda Orellana MD [Primary Care Provider] - Stand Alone Forms: MyHealth Info Instructions
[2024-05-22] MEDS: ASPIRIN 81 MG TAB.CHEW 324 MG PO (11:35)
[2024-05-22 11:39] LABS: Basophils Absolute Auto 0.01 K/uL (0.00-0.30); Basophils Percent Auto 0.1 % (0.0-3.0); Eosinophils Absolute Auto 0.06 K/uL (0.00-0.50); Eosinophils Percent Auto 0.7 % (0.0-7.0); Hematocrit 33.6 % (33.0-51.0); Hemoglobin* 10.3 gm/dL (12.0-16.0); Immature Granulocytes Abs Auto 0.01 K/uL (0.00-0.30); Immature Granulocytes Pct Auto 0.1 %; Lymphocytes Percent Auto 9.8 % (20-44); Mean Corpuscular HGB Conc 31 gm/dL (32-36); Mean Corpuscular Hemoglobin 27 pg (26-34); Mean Corpuscular Volume 88 fL (80-100); Monocytes Percent Auto 5.8 % (0.0-11.0); Neutrophils Percent Auto 83.5 % (42.0-72.0); Platelet Count* 188 K/uL (140-440); RDW Coefficient of Variation % 16.6 % (11.5-15.5); Red Blood Count 3.83 m/uL (4.00-5.20); White Blood Count* 8.94 K/uL (4.50-11.00)
[2024-05-22 11:41] LABS: Slide Review Reflex No
[2024-05-22 11:41] LABS: Troponin, Point-of-Care* 0.02 ng/ml (0.01-0.04)
[2024-05-22 11:58] LABS: Chloride* 109 mmol/L (96-114); Potassium* 3.8 mmol/L (3.6-5.1); Sodium* 141 mmol/L (135-149)
[2024-05-22 12:00] LABS: Creatinine* 0.8 mg/dL (0.5-1.5); Est. Creatinine Clearance* 50.47; Estimated Glomerular Filt Rate 82 ml/min
[2024-05-22 12:01] LABS: Anion Gap 10 mEq/L (7-15); Blood Urea Nitrogen* 20 mg/dL (7-30); Carbon Dioxide* 22 mmol/L (20-32); Glucose* 191 mg/dL (60-115)
[2024-05-22] MEDS: KETOROLAC 30 MG/ML inj 15 MG IVP (12:16)
--- NOTE | 2024-05-22 16:15 | PC.SOCIAL ---
Discharge planning: blow off worker met with pt today in the ED to provide housing resources, as pt is currently experiencing homelessness and is sleeping in her car. blow off worker gave the pt the information for [facility]. Pt plans to go there today after she discharges from the hospital for housing/emergency assistance. Pt can drive herself to [facility] in her own vehicle. blow off worker did call over to [facility] and left a message giving them a heads up that the pt was heading over after discharge. The pt did give this worker permission to call [facility] and give them her name. Pt was thankful for the assistance. Pt did ask this social science instructor if she was not assisted with a place to stay tonight by [facility], if she could sleep in her car in the hospital parking lot. This social science instructor explained that that would not be a good idea and that [facility] would most likely be able to assist her short-term and long-term. Social work to follow-up as needed.
== END 2024-05-22 14:59 | disposition home or self-care (01) ==
PROVIDERS: Emergency Provider Emergency Medicine Emergency Medical Services; PCP Family Medicine
DX: R07.89 Other chest pain (principal)
CPT/HCPCS: 36415; 80048; 84484; 85025; 93005; 96374; 99284; A9270; J1885